=== PATIENT | male | born 1960 | race Caucasian/White ===

== ENCOUNTER 2016-10-08 10:09 | Observation (INO) | payer MEDICARE ==
[2016-10-08] MEDS ORDERED: ACETAMINOPHEN TAB 325 MG TAB PO PRN (12:33)
[2016-10-08] MEDS ORDERED: NALOXONE 0.4 MG/ML 1 ML VIAL IV PRN (12:33)
[2016-10-08 12:35] LABS: Glucose,Whole Blood 364 mg/dL (75-99)
--- NOTE | 2016-10-08 12:54 | XR ---
EXAMINATION TYPE: XR chest 2V DATE OF EXAM: 10/08/2016 12:46 PM COMPARISON: NONE INDICATION: TECHNIQUE: Single frontal view of the chest is obtained. FINDINGS: The heart size is normal. The pulmonary vasculature is normal. There is a linear opacity at the left base. Some minimal plate atelectasis is present. Lungs are othe rwise clear. IMPRESSION: 1. Minimal plate atelectasis left base in otherwise normal 2 view chest
[2016-10-08] MEDS ORDERED: INSULIN LISPRO (humaLOG) 300 UNIT/3 ML VIAL SQ ONE (12:57)
[2016-10-08] MEDS: SODIUM CHLORIDE 0.9% 1,000 ML IV SCH (13:18)
[2016-10-08 13:27] LABS: Basophils % (A) 0 %; CH 29.7; CHCM 34.6; Eosinophils # (A) 0.1 k/uL (0-0.7); Eosinophils % (A) 1 %; HCT 39.9 % (39.0-53.0); HDW 2.78; HGB 13.9 gm/dL (13.0-17.5); Luc # (Auto) 0.14; Luc % (Auto) 1; Lymphocytes # (A) 2.8 k/uL (1.0-4.8); Lymphocytes % (A) 25 %; MCH 29.9 pg (25.0-35.0); MCHC 34.8 g/dL (31.0-37.0); MCV 86.1 fL (80.0-100.0); Mean Platelet Volume 10.2; Monocytes # (A) 0.5 k/uL (0-1.0); Monocytes % (A) 4 %; Neutrophils # (A) 7.7 k/uL (1.3-7.7); Neutrophils % (A) 69 %; RBC 4.63 m/uL (4.30-5.90); RDW 13.1 % (11.5-15.5); WBC 11.2 k/uL (3.8-10.6); WBC (Perox) 11.07
[2016-10-08] MEDS ORDERED: ALPRAZolam 0.25 MG TAB PO PRN (13:40)
[2016-10-08 13:46] LABS: ALT 30 U/L (21-72); AST 20 U/L (17-59); Alkaline Phosphatase 80 U/L (38-126); Anion Gap 14 mmol/L; Blood Urea Nitrogen 20 mg/dL (9-20); Calcium 9.6 mg/dL (8.4-10.2); Carbon Dioxide 26 mmol/L (22-30); Chloride 99 mmol/L (98-107); Glucose 365 mg/dL (74-99); Non-African American GFR(MDRD) >60 (>60 ml/min/1.73 sqM); Potassium 4.6 mmol/L (3.5-5.1); Sodium 139 mmol/L (137-145); Total Bilirubin 0.7 mg/dL (0.2-1.3); Total Protein 7.8 g/dL (6.3-8.2)
--- NOTE | 2016-10-08 15:18 | P.HPIM ---
History of Present Illness H&P Date: 10/08/16 Chief Complaint: Uncontrolled hypertension Patient is a 56-year-old male, patient of Dr. Saldana in the outpatient setting, with medical history significant for hypertension, diabetes mellitus type 2, hypertension, rheumatoid arthritis, and osteoarthritis. Patient reports that many years ago he was told that he has fluid behind his right eye and reports occasional cloudy vision especially with when reading things up close. Patient states that he had a regular scheduled visit with Dr. Saldana today with reported elevated blood pressure in the 200s despite being on four blood pressure medications. Patient denies headache, new visual changes, nausea, vomiting, shortness of breath, chest pain, abdominal pain, numbness or tingling, diarrhea or constipation, urinary hesitancy, dysuria, or hematuria. Patient does complain of joint pain for which he takes prescribed opiates and occasional marijuana. Patient reports that he occasionally uses a cane. Patient reports that he does have a glucose monitor but doesn't check his blood sugar at home. Patient has been admitted to the observation unit with cardiology consult. Past Medical History Past Medical History: Diabetes Mellitus, Eye Disorder, Hypertension, Osteoarthritis (OA), Pneumonia, Rheumatoid Arthritis (RA) Additional Past Medical History / Comment(s): NIDDM type II, R eye cloudy vision and pt states eye has fluid behind it, bilateral hand/feet and knee pain. History of Any Multi-Drug Resistant Organisms: None Reported Past Surgical History: Appendectomy, Cholecystectomy, Orthopedic Surgery Additional Past Surgical History / Comment(s): L knee ACL/reconstruction. Past Anesthesia/Blood Transfusion Reactions: Postoperative Nausea & Vomiting ( PONV) Past Psychological History: Anxiety Additional Psychological History / Comment(s): Pt resides with his son. He has a cane which he uses infrequently. He drives. He has a glucose monitor. Smoking Status: Former smoker Past Alcohol Use History: None Reported Additional Past Alcohol Use History / Comment(s): Pt states he started smoking in 1981 and quit in 2005. Past Drug Use History: Marijuana Additional Drug Use History / Comment(s): Pt states he smokes a joint a day for pain. - Past Family History Father Family Medical History: Diabetes Mellitus Mother Family Medical History: Renal Disease Additional Family Medical History / Comment(s): Mother is 80yrs old and gets hemodialysis. Medications and Allergies Home Medications Medication Instructions Recorded Confirmed Type ALPRAZolam [Xanax] 0.25 mg PO BID PRN 10/08/16 10/08/16 History Enalapril [Vasotec] 10 mg PO BID 10/08/16 10/08/16 History HYDROcodone/APAP 10-325MG [[place] 1 tab PO Q6H PRN 10/08/16 10/08/16 History 10-325] Hydrochlorothiazide [Hydrodiuril] 50 mg PO DAILY 10/08/16 10/08/16 History Indomethacin [Indocin] 50 mg PO BID 10/08/16 10/08/16 History amLODIPine BESYLATE [Norvasc] 10 mg PO DAILY 10/08/16 10/08/16 History cloNIDine HCL [Catapres] 0.1 mg PO BID 10/08/16 10/08/16 History glyBURIDE,MICRONIZED 6 mg PO BID 10/08/16 10/08/16 History metFORMIN HCL [Glucophage] 500 mg PO BID 10/08/16 10/08/16 History Allergies Allergy/AdvReac Type Severity Reaction Status Date / Time No Known Allergies Allergy Verified 10/08/16 12:38 Physical Exam Vitals: Vital Signs Temp Pulse Resp BP Pulse Ox 10/08/16 12:00 98.4 F 91 16 153/93 93 L Intake and Output 10/08/16 10/08/16 10/08/16 06:59 14:59 22:59 Intake Total 340 Balance 340 Intake: Oral 340 Other: # Voids 1 Weight 99.79 kg Patient Weight 10/09/16 06:59 Weight 99.79 kg GENERAL: Pt awake and alert, well-appearing, well-nourished, and in no acute distress. HEAD: Atraumatic, normocephalic. EYES: Pupils equal, round, and reactive to light, extraocular movements intact, sclera anicteric, conjunctiva are normal. ENT: Oropharynx clear without exudates. Moist mucous membranes. NECK:Normal range of motion, supple without lymphadenopathy or JVD. Thyroid midline, small and firm without palpable masses. LUNGS: Breath sounds clear to auscultation bilaterally. No wheezes, rales, or rhonchi. HEART: Heart S1, S2, no S3 or S4. Regular rate and rhythm. No murmurs, rubs or gallops. ABDOMEN: Soft, obese, nontender, nondistended, normoactive bowel sounds. No guarding, no rebound. EXTREMITIES: Palpable peripheral pulses. No edema. No calf tenderness. NEUROLOGICAL: Pt oriented x 3. No focal deficits. Strength and sensation grossly intact. PSYCH: Normal mood, normal affect. SKIN: Warm, dry, intact. Normal turgor. No rashes or lesions. Results CBC & Chem 7: 10/08/16 12:54 10/08/16 12:54 Labs: Abnormal Lab Results - Last 24 Hours (Table) 10/08/16 10/08/16 10/08/16 Range/Units 12:32 12:54 12:54 WBC 11.2 H (3.8-10.6) k/uL Glucose 365 H (74-99) mg/dL POC Glucose (mg/dL) 364 H (75-99) mg/dL Chest x-ray: report reviewed (Minimal plate atelectasis left base, lungs are otherwise clear. Heart size is normal.) Thrombosis Risk Factor Assmnt - DVT/VTE Prophylaxis DVT/VTE Prophylaxis: Low risk, early ambulation encouraged - Choose All That Apply Any of the Below Risk Factors Present?: Yes Each Factor Represents 1 point: Age 41-60 years, Obesity (BMI >25) Other Risk Factors: No Other congenital or acquired thrombophilia - If yes, enter type in comment: No Thrombosis Risk Factor Assessment Total Risk Factor Score: 2 Thrombosis Risk Factor Assessment Level: Low Risk Assessment and Plan Plan: Impression: 1. Uncontrolled blood pressure in the outpatient setting. 2. Diabetes mellitus type 2. 3. History of hypertension. 4. Osteoarthritis to multiple joints. 5. Rheumatoid arthritis. 6. History of anxiety. 7. History of nicotine dependence. 8. Marijuana use. Plan: Consult to cardiology. Will obtain EKG and echocardiogram with Doppler. Obtain CBC and CMP. Resume home medications. Add Accu-Cheks before meals at bedtime with humalog sliding scale. Consult dietitian and paraeducator. Continue supportive treatment and pain management. Encourage ambulation. The above impression and plan have been discussed and directed by Dr. Saldana. Cristi MARTIN acting as scribe for Dr. Saldana.
[2016-10-08 17:00] LABS: Glucose,Whole Blood 148 mg/dL (75-99)
[2016-10-08] MEDS: glipiZIDE 10 MG TAB PO SCH (17:07)
[2016-10-08] MEDS: HYDROcodone/APAP 10-325MG 1 EACH TAB PO PRN ×2 (17:10→22:44)
[2016-10-08] MEDS: INSULIN LISPRO (humaLOG) 300 UNIT/3 ML VIAL SQ SCH ×2 (17:22→20:14)
[2016-10-08 17:40] LABS: Creatine Kinase 121 U/L (55-170)
[2016-10-08 17:53] LABS: Creatine Kinase MB 0.8 ng/mL (0.0-2.4); Troponin I <0.012 ng/mL (0.000-0.034)
[2016-10-08] MEDS: FAMOTIDINE 20 MG TAB PO SCH (20:13)
[2016-10-08] MEDS: metFORMIN 500 MG TAB PO SCH (20:13)
[2016-10-08] MEDS: INDOMETHACIN 25 MG CAP PO SCH (20:13)
[2016-10-08] MEDS: LISINOPRIL 20 MG TAB PO SCH (20:13)
[2016-10-08] MEDS: cloNIDine HCL 0.1 MG TAB PO SCH (20:13)
[2016-10-08 20:34] LABS: Glucose,Whole Blood 199 mg/dL (75-99)
[2016-10-08 22:56] LABS: Hemoglobin A1C 9.1 % (4.2-6.1)
[2016-10-08 23:14] LABS: Creatine Kinase 117 U/L (55-170)
[2016-10-08 23:27] LABS: Creatine Kinase MB 0.8 ng/mL (0.0-2.4); Troponin I <0.012 ng/mL (0.000-0.034)
[2016-10-09 06:20] LABS: Creatine Kinase 122 U/L (55-170)
[2016-10-09 06:34] LABS: Creatine Kinase MB 0.8 ng/mL (0.0-2.4); Troponin I <0.012 ng/mL (0.000-0.034)
[2016-10-09] MEDS: HYDROcodone/APAP 10-325MG 1 EACH TAB PO PRN ×3 (06:55→19:41)
[2016-10-09 06:58] LABS: Glucose,Whole Blood 178 mg/dL (75-99)
--- NOTE | 2016-10-09 07:47 | ECHOF ---
Referral Reason:evaluate heart function MEASUREMENTS -------- HEIGHT: 167.6 cm WEIGHT: 99.8 kg BP: 153/93 RVIDd: 3.1 cm (< 3.3) IVSd: 1.1 cm (0.6 - 1.1) LVIDd: 5.6 cm (3.9 - 5.3) LVPWd: 1.0 cm (0.6 - 1.1) IVSs: 1.9 cm LVIDs: 3.4 cm LVPWs: 1.9 cm LA Diam: 3.5 cm (2.7 - 3.8) LAESV Index (A-L): 27.35 ml/m Ao Diam: 3.7 cm (2.0 - 3.7) AV Cusp: 1.5 cm (1.5 - 2.6) LA Diam: 3.1 cm (2.7 - 3.8) MV EXCURSION: 13.536 mm (> 18.000) MV EF SLOPE: 97 mm/s (70 - 150) EPSS: 0.4 cm MV E Russ: 0.88 m/s MV DecT: 270 ms MV A Russ: 0.59 m/s MV E/A Ratio: 1.50 AV maxP.10 mmHg AV meanP.42 mmHg RAP: 5.00 mmHg RVSP: 22.20 mmHg FINDINGS -------- Sinus rhythm. This was a technically good study. The left ventricular size is normal. There is borderline concentric left ventricular hypertrophy. Overall left ventricular systolic function is normal with, an EF between 60 - 65 %. The right ventricle is normal in size and function. Normal LA size by volume 22+/-6 ml/m2. The right atrium is normal in size. There is mild to moderate aortic valve sclerosis. There is mild aortic stenosis present. Peak/mean gradient across the Aortic Valve is 14.10mmHg / 7.42mmHg. Mild mitral annular calcification present. There is trace mitral regurgitation. Mild tricuspid regurgitation present. Right ventricular systolic pressure is normal at < 35 mmHg. The pulmonic valve is normal. There is no pulmonic regurgitation present. The aortic root is dilated measuring 3.7cm. The inferior vena cava is mildly dilated. There is no pericardial effusion. CONCLUSIONS -------- 1. Sinus rhythm. 2. There is mild aortic stenosis present. 3. Peak/mean gradient across the Aortic Valve is 14.10mmHg / 7.42mmHg. 4. Mild mitral annular calcification present. 5. There is trace mitral regurgitation. 6. Mild tricuspid regurgitation present. 7. Right ventricular systolic pressure is normal at < 35 mmHg. 8. The pulmonic valve is normal. 9. The aortic root is dilated measuring 3.7cm. 10. The inferior vena cava is mildly dilated. 11. There is no pericardial effusion. 12. This was a technically good study. 13. The left ventricular size is normal. 14. There is borderline concentric left ventricular hypertrophy. 15. Overall left ventricular systolic function is normal with, an EF between 60 - 65 %. 16. The right ventricle is normal in size and function. 17. Normal LA size by volume 22+/-6 ml/m2. 18. The right atrium is normal in size. 19. There is mild to moderate aortic valve sclerosis. RN CARDIOVASCULAR ICU: Byron Miller RDCS
[2016-10-09] MEDS: INSULIN LISPRO (humaLOG) 300 UNIT/3 ML VIAL SQ SCH ×4 (09:02→22:59)
[2016-10-09] MEDS: FAMOTIDINE 20 MG TAB PO SCH ×2 (09:15→19:39)
[2016-10-09] MEDS: cloNIDine HCL 0.1 MG TAB PO SCH ×2 (09:15→19:39)
[2016-10-09] MEDS: LISINOPRIL 20 MG TAB PO SCH ×2 (09:15→19:39)
[2016-10-09] MEDS: HYDROCHLOROTHIAZIDE 50 MG TAB PO SCH (09:15)
[2016-10-09] MEDS: amLODIPine 10 MG TAB PO SCH (10:22)
[2016-10-09] MEDS: metFORMIN 500 MG TAB PO SCH ×2 (10:22→19:40)
[2016-10-09] MEDS: glipiZIDE 10 MG TAB PO SCH ×2 (10:22→17:25)
[2016-10-09] MEDS: INDOMETHACIN 25 MG CAP PO SCH ×2 (10:22→19:39)
--- NOTE | 2016-10-09 10:42 | CONS ---
DATE OF CONSULTATION: Mr. Max is a 56-year-old, obesely-built gentleman who is seen for uncontrolled hypertension. This patient has a history of hypertension, diabetes, rheumatoid arthritis and osteoarthritis. Patient has been on multiple medications and still blood pressure is not very well controlled. Patient was seen in Dr. Saldana's office yesterday. His systolic blood pressure was significantly elevated and so the patient was advised to come over here. Patient has rheumatoid arthritis. He is on anti-inflammatory medications. Patient is otherwise physically active, denies any history of exertional chest discomfort. There is no prior history of myocardial infarction. Patient does have a history of diabetes. Past medical history includes appendectomy, cholecystectomy, orthopedic surgery. SMOKING HISTORY: Patient is a former smoker. Patient's home medications included amlodipine, clonidine, metformin, glyburide, hydrochlorothiazide, enalapril and Xanax. Physical examination at present reveals a 56-year-old, obesely-built gentleman who does not appear to be in any acute distress at present. Patient's blood pressure is 168/85 mmHg, heart rate is 98 per minute. HEENT examination is negative. Neck is supple. There is no increase in jugular venous pressure. Both the carotid pulses are felt. There is no bruit. Chest is symmetrical. HEART: The PMI is not felt. First and second heart sounds are normal. There is a mid-systolic murmur noted at the left sternal border. Lungs are clinically clear to auscultation and percussion. Abdomen is soft. Liver and spleen are not enlarged. Bowel sounds are heard. Extremities, peripheral pulsations are 2+. Patient's EKG shows normal sinus rhythm without any acute ischemic changes. Patient's blood sugars are elevated but patient's hemoglobin has been remaining fairly well-controlled as an outpatient. Patient's 2 sets of troponins are normal. FINAL IMPRESSION: This patient is admitted with uncontrolled hypertension. Patient has multiple risk factors including diabetes and rheumatoid arthritis. RECOMMENDATION: Discussed the condition with Dr. Saldana. We will add Coreg 12.5 mg b.i.d., continue amlodipine and in view of his history of diabetes as well as smoking, I will add Lipitor 40 mg daily. Echo and Doppler study will be done. Patient has a mid-systolic murmur, rule out any underlying hypertrophic cardiomyopathy.
[2016-10-09] MEDS: CARVEDILOL 12.5 MG TAB PO SCH ×2 (11:24→17:25)
[2016-10-09 11:47] LABS: Glucose,Whole Blood 283 mg/dL (75-99)
[2016-10-09 14:06] VITALS: BMI 35.5
--- NOTE | 2016-10-09 15:13 | P.PN ---
Subjective Principal diagnosis: Uncontrolled hypertension Patient is a 56-year-old male, patient of Dr. Saldana in the outpatient setting, with medical history significant for hypertension, diabetes mellitus type 2, hypertension, rheumatoid arthritis, and osteoarthritis. Patient reports that many years ago he was told that he has fluid behind his right eye and reports occasional cloudy vision especially when reading things up close. Patient states that he had a regular scheduled visit with Dr. Saldana today with reported elevated blood pressure in the 200s despite being on four blood pressure medications. Patient denies headache, new visual changes, nausea , vomiting, shortness of breath, chest pain, abdominal pain, numbness or tingling, diarrhea or constipation, urinary hesitancy, dysuria, or hematuria. Patient does complain of joint pain for which he takes prescribed opiates and occasional marijuana. Patient reports that he occasionally uses a cane. Patient reports that he does have a glucose monitor but doesn't check his blood sugar at home. Patient has been admitted to the observation unit with cardiology consult. 10/09/2016: Patient is evaluated on the observation unit. No new complaints overnight. Patient did have a blood pressure reading of 190/108 this morning. Patient did have an EKG yesterday that showed normal sinus rhythm without any acute ischemic changes. Troponins negative 2. Echocardiogram with Doppler with evidence of mild to moderate aortic valve sclerosis; mild aortic stenosis; preserved left ventricular systolic function with an EF between 60-65%. Chest x -ray with evidence of minimal plate atelectasis to left base. Cardiology has evaluated patient and has started him on Coreg 12.5 mg twice a day. Objective - Vital Signs Vital signs: Vital Signs Temp 98.3 F 10/09/16 12:00 Pulse 76 10/09/16 12:00 Resp 18 10/09/16 12:00 BP 145/88 10/09/16 12:00 Pulse Ox 96 10/09/16 12:00 Intake & Output 10/08/16 10/09/16 10/09/16 18:59 06:59 18:59 Intake Total 340 360 Balance 340 360 Weight 99.79 kg 99.79 kg Intake: Oral 340 360 Other: Voiding Method Toilet # Voids 1 1 - Exam GENERAL: Pt awake and alert, well-appearing, well-nourished, and in no acute distress. HEAD: Atraumatic, normocephalic. EYES: Pupils equal, round, and reactive to light, extraocular movements intact, sclera anicteric, conjunctiva are normal. ENT: Oropharynx clear without exudates. Moist mucous membranes. NECK:Normal range of motion, supple without lymphadenopathy or JVD. Thyroid midline, small and firm without palpable masses. LUNGS: Breath sounds clear to auscultation bilaterally. No wheezes, rales, or rhonchi. HEART: Heart S1, S2, no S3 or S4. Regular rate and rhythm. No murmurs, rubs or gallops. ABDOMEN: Soft, obese, nontender, nondistended, normoactive bowel sounds. No guarding, no rebound. EXTREMITIES: Palpable peripheral pulses. No edema. No calf tenderness. NEUROLOGICAL: Pt oriented x 3. No focal deficits. Strength and sensation grossly intact. PSYCH: Normal mood, normal affect. SKIN: Warm, dry, intact. Normal turgor. No rashes or lesions. - Labs CBC & Chem 7: 10/08/16 12:54 10/08/16 12:54 Labs: Abnormal Lab Results - Last 24 Hours (Table) 10/08/16 10/08/16 10/08/16 Range/Units 12:54 16:58 20:12 POC Glucose (mg/dL) 148 H 199 H (75-99) mg/dL Hemoglobin A1c 9.1 H (4.2-6.1) % 10/09/16 10/09/16 Range/Units 06:56 11:44 POC Glucose (mg/dL) 178 H 283 H (75-99) mg/dL Hemoglobin A1c (4.2-6.1) % Assessment and Plan Plan: Impression: 1. Uncontrolled hypertension, present on admission. 2. Diabetes mellitus type 2, uncontrolled. Hemoglobin A1c 9.1. 3. History of hypertension. 4. Osteoarthritis to multiple joints. 5. Rheumatoid arthritis. 6. History of anxiety. 7. History of nicotine dependence. 8. Marijuana use. Plan: Continue to monitor patient. Continue current medications. Coreg 12.5 mg by mouth twice a day has been added. Continue to follow with cardiology. Continue supportive treatment and pain management. Encourage ambulation. The above impression and plan have been discussed and directed by Dr. Saldana. Cristi MARTIN acting as scribe for Dr. Saldana.
[2016-10-09 17:11] LABS: Glucose,Whole Blood 174 mg/dL (75-99)
[2016-10-09] MEDS: SODIUM CHLORIDE 0.9% 1,000 ML IV SCH (17:29)
[2016-10-09] MEDS ORDERED: ATORVASTATIN 40 MG TAB PO SCH (21:00)
[2016-10-09 21:48] LABS: Glucose,Whole Blood 268 mg/dL (75-99)
[2016-10-10] MEDS: HYDROcodone/APAP 10-325MG 1 EACH TAB PO PRN ×2 (01:34→08:29)
[2016-10-10 06:57] LABS: Glucose,Whole Blood 178 mg/dL (75-99)
[2016-10-10] MEDS: INSULIN LISPRO (humaLOG) 300 UNIT/3 ML VIAL SQ SCH (07:29)
[2016-10-10] MEDS: glipiZIDE 10 MG TAB PO SCH (07:30)
[2016-10-10] MEDS: CARVEDILOL 12.5 MG TAB PO SCH (07:30)
[2016-10-10] MEDS: amLODIPine 10 MG TAB PO SCH (07:31)
[2016-10-10] MEDS: cloNIDine HCL 0.1 MG TAB PO SCH (07:31)
[2016-10-10] MEDS: INDOMETHACIN 25 MG CAP PO SCH (07:32)
[2016-10-10] MEDS: HYDROCHLOROTHIAZIDE 50 MG TAB PO SCH (07:32)
[2016-10-10] MEDS: FAMOTIDINE 20 MG TAB PO SCH (07:32)
[2016-10-10] MEDS: metFORMIN 500 MG TAB PO SCH (07:33)
[2016-10-10] MEDS: LISINOPRIL 20 MG TAB PO SCH (07:34)
[2016-10-10 07:49] VITALS: RESP 18; TEMP 98.2
[2016-10-10 08:52] VITALS: BP 163/91; PULSE 80
--- NOTE | 2016-10-10 13:03 | P.DS ---
Providers Date of admission: 10/08/16 11:38 Expected date of discharge: 10/10/16 Attending physician: Yao Saldana Consults: 10/08/16 12:25 Consult Physician Urgent Consulting Provider: Kam Eubanks Consult Reason/Comments: uncontrolled hypertension Do you want consulting provider notified?: Yes Primary care physician: Yao Saldana Hospital Course: Patient is a 56-year-old male, patient of Dr. Saldana in the outpatient setting, with medical history significant for hypertension, diabetes mellitus type 2, hypertension, rheumatoid arthritis, and osteoarthritis. Patient reports that many years ago he was told that he has fluid behind his right eye and reports occasional cloudy vision especially when reading things up close. Patient was admitted directly from Dr. Saldana office with uncontrolled hypertension with systolic blood pressure in the 200s. Patient did have an EKG that showed normal sinus rhythm without acute ischemic changes. Troponins negative 3. Echocardiogram with Doppler with evidence of mild to moderate aortic valve sclerosis; mild aortic stenosis; preserved left ventricular systolic function with an EF between 60-65%. Chest x-ray with evidence of minimal plate atelectasis to the left base. Patient was evaluated by cardiology during his admission and blood pressure medications were adjusted. Patient was also noted to have a hemoglobin A1c of 9.1. Dietitian and diabetic consults were initiated. Patient was given a new glucometer upon discharge. Blood pressure improved during hospital stay and patient was deemed stable for discharge to home with follow-up with cardiology and Dr. Saldana the outpatient setting. Discharge diagnoses: 1. Uncontrolled hypertension, present on admission. 2. Diabetes mellitus type 2, uncontrolled. Hemoglobin A1c 9.1. 3. History of hypertension. 4. Osteoarthritis to multiple joints. 5. Rheumatoid arthritis. 6. History of anxiety. 7. History of nicotine dependence. 8. Marijuana use. The above impression and plan have been discussed and directed by Dr. Saldana. Cristi MARTIN acting as scribe for Dr. Saldana. Pertinent Studies: Echocardiogram with Doppler; chest x-ray Patient Condition at Discharge: Good Plan - Discharge Summary New Discharge Prescriptions: Carvedilol [Coreg*] 12.5 mg PO BID-W/MEALS #60 tab Lisinopril [Zestril] 20 mg PO BID #60 tab amLODIPine BESYLATE [Norvasc] 10 mg PO DAILY #30 tablet Discharge Medication List ALPRAZolam [Xanax] 0.25 mg PO BID PRN 10/08/16 [History] HYDROcodone/APAP 10-325MG [[place] 10-325] 1 tab PO Q6H PRN 10/08/16 [History] Hydrochlorothiazide [Hydrodiuril] 50 mg PO DAILY 10/08/16 [History] Indomethacin [Indocin] 50 mg PO BID 10/08/16 [History] cloNIDine HCL [Catapres] 0.1 mg PO BID 10/08/16 [History] glyBURIDE,MICRONIZED 6 mg PO BID 10/08/16 [History] metFORMIN HCL [Glucophage] 500 mg PO BID 10/08/16 [History] Carvedilol [Coreg*] 12.5 mg PO BID-W/MEALS #60 tab 10/10/16 [Rx] Lisinopril [Zestril] 20 mg PO BID #60 tab 10/10/16 [Rx] amLODIPine BESYLATE [Norvasc] 10 mg PO DAILY #30 tablet 10/10/16 [Rx] Follow up Appointment(s)/Referral(s): Yao Saldana MD [Primary Care Provider] - 10/15/16 2:00 pm (Pt can call office to see if anyone has canceled appt to get in earlier. ) Patient Instructions/Handouts: Type 2 Diabetes in Adults (DC), Hypertension (DC ) Activity/Diet/Wound Care/Special Instructions: Please fruit picker glucometer Discharge Disposition: HOME SELF-CARE
== END 2016-10-10 09:53 | disposition home or self-care (01) ==
LOC: 3OBS 11:38
PROVIDERS: ADMIT Family Medicine; ATTEND Family Medicine
DX: I10 Essential (primary) hypertension (principal); E11.65 Type 2 diabetes mellitus with hyperglycemia; M06.9 Rheumatoid arthritis, unspecified; F41.9 Anxiety disorder, unspecified; M19.90 Unspecified osteoarthritis, unspecified site; F12.90 Cannabis use, unspecified, uncomplicated; E66.09 Other obesity due to excess calories; H57.9 Unspecified disorder of eye and adnexa; Z68.35 Body mass index [BMI] 35.0-35.9, adult; Z79.899 Other long term (current) drug therapy; Z87.891 Personal history of nicotine dependence; Z79.84 Long term (current) use of oral hypoglycemic drugs; Z83.3 Family history of diabetes mellitus
CPT/HCPCS: 93306; 80053; 83036; 82550 ×2; 82553 ×2; 84484 ×2; 85025; 71020; G0378 ×3; G0379; 93005

== ENCOUNTER → 2017-05-14 | Outpatient (CLI) | payer MEDICARE ==
--- NOTE | 2017-05-14 08:26 | MR ---
EXAMINATION TYPE: MR lumbar spine wo con DATE OF EXAM: 05/14/2017 COMPARISON: NONE HISTORY: Low back pain TECHNIQUE: T1 and T2 axial and sagittal images of the lumbar spine are submitted. FINDINGS: There is no abnormal signal seen within the visualized spinal cord or paraspinal soft tissu es. There is degenerative disc disease at T12-L1 no foraminal encroachment or canal stenosis. At L1-2 there is facet arthropathy. No focal herniation or canal stenosis. Neural foramina patent. At L2-3 there is no disc herniation or canal stenosis. Facet arthropathy noted. No foraminal encroach ment. At L3-4 there is disc desiccation. There is facet arthropathy. Severe motion artifact. No canal steno sis or foraminal encroachment. At L4-5 there is degenerative disc disease. Broad-based central disc protrusion with mild effacement of thecal sac. Uncovertebral joint hypertrophy and severe facet arthropathy contribute to borderline to mild canal stenosis and bilateral foraminal encroachment. At L5-S1 there is degenerative disc disease with marked facet arthropathy. No Canal stenosis. There d oes appear to be bilateral moderate foraminal encroachment secondary to severe facet arthropathy. IMPRESSION: 1. Broad-based disc central protrusion L4-L5 with hypertrophic changes contributing to borderline to mild canal stenosis and bilateral foraminal encroachment. 2. Multilevel facet arthropathy with the most marked findings at L5-S1 resulting in bilateral foramin al encroachment.
== END | disposition home or self-care (01) ==
LOC: RADMRIMAIN 07:14
PROVIDERS: ATTEND Family Medicine
DX: M48.061 Spinal stenosis, lumbar region without neurogenic claudication (principal); M51.26 Other intervertebral disc displacement, lumbar region; M46.86 Other specified inflammatory spondylopathies, lumbar region
CPT/HCPCS: 72148

== ENCOUNTER 2017-12-03 20:19 | Emergency (ER) | payer MEDICARE ==
[2017-12-03 21:09] LABS: Glucose,Whole Blood 246 mg/dL (75-99)
[2017-12-03] MEDS ORDERED: ONDANSETRON 4 MG/2 ML VIAL IVP STA (21:21)
[2017-12-03] MEDS ORDERED: SODIUM CHLORIDE 0.9% 1,000 ML IV STA ×2 (21:21)
[2017-12-03] MEDS ORDERED: FAMOTIDINE 20 MG/2 ML VIAL IV STA (21:22)
--- NOTE | 2017-12-03 21:29 | ED ---
General Adult HPI - General Chief complaint: Nausea/Vomiting/Diarrhea Stated complaint: Nausea and vomiting Time Seen by Provider: 12/03/17 21:00 Source: patient, RN notes reviewed Mode of arrival: ambulatory Limitations: no limitations - History of Present Illness Initial comments: Patient is a pleasant 57-year-old male presenting to the emergency Department with complaints of nausea and vomiting. Symptoms been going on for 2-3 days. Patient has been somewhat sweaty. Patient has had some loose stools. No abdominal pain. No chest pain or dyspnea. No history of similar symptoms previously. Blood sugar has been running somewhat high, up to 260. Blood pressure has been a little bit high as well. - Related Data Home Medications Medication Instructions Recorded Confirmed ALPRAZolam [Xanax] 0.25 mg PO BID PRN 10/08/16 10/08/16 HYDROcodone/APAP 10-325MG [[place] 1 tab PO Q6H PRN 10/08/16 10/08/16 10-325] Hydrochlorothiazide [Hydrodiuril] 50 mg PO DAILY 10/08/16 10/08/16 Indomethacin [Indocin] 50 mg PO BID 10/08/16 10/08/16 cloNIDine HCL [Catapres] 0.1 mg PO BID 10/08/16 10/08/16 glyBURIDE,MICRONIZED 6 mg PO BID 10/08/16 10/08/16 metFORMIN HCL 1,000 mg PO BID 12/03/17 12/03/17 Previous Rx's Medication Instructions Recorded Carvedilol [Coreg*] 12.5 mg PO BID-W/MEALS #60 tab 10/10/16 Lisinopril [Zestril] 20 mg PO BID #60 tab 10/10/16 amLODIPine BESYLATE [Norvasc] 10 mg PO DAILY #30 tablet 10/10/16 Metoclopramide HCl [Reglan] 10 mg PO Q6HR PRN #15 tablet 12/03/17 Allergies Allergy/AdvReac Type Severity Reaction Status Date / Time No Known Allergies Allergy Verified 12/03/17 22:45 Review of Systems ROS Statement: Those systems with pertinent positive or pertinent negative responses have been documented in the HPI. ROS Other: All systems not noted in ROS Statement are negative. Constitutional: Denies: fever Eyes: Denies: eye pain ENT: Denies: ear pain Respiratory: Denies: cough, dyspnea Cardiovascular: Denies: chest pain Endocrine: Denies: fatigue Gastrointestinal: Reports: nausea, vomiting. Denies: abdominal pain Genitourinary: Denies: dysuria Musculoskeletal: Denies: back pain Skin: Denies: rash Neurological: Denies: headache Past Medical History Past Medical History: Diabetes Mellitus, Eye Disorder, Hypertension, Osteoarthritis (OA), Pneumonia, Rheumatoid Arthritis (RA) Additional Past Medical History / Comment(s): NIDDM type II, R eye cloudy vision and pt states eye has fluid behind it, bilateral hand/feet and knee pain. History of Any Multi-Drug Resistant Organisms: None Reported Past Surgical History: Appendectomy, Cholecystectomy, Orthopedic Surgery Additional Past Surgical History / Comment(s): L knee ACL/reconstruction. Past Anesthesia/Blood Transfusion Reactions: Postoperative Nausea & Vomiting ( PONV) Past Psychological History: Anxiety Smoking Status: Former smoker Past Alcohol Use History: Rare Past Drug Use History: Marijuana - Past Family History Father Family Medical History: Diabetes Mellitus Mother Family Medical History: Renal Disease Additional Family Medical History / Comment(s): Mother is 80yrs old and gets hemodialysis. General Exam Limitations: no limitations General appearance: alert, in no apparent distress Head exam: Present: atraumatic Eye exam: Present: normal appearance, PERRL ENT exam: Present: normal oropharynx Neck exam: Present: normal inspection Respiratory exam: Present: normal lung sounds bilaterally Cardiovascular Exam: Present: regular rate, normal rhythm GI/Abdominal exam: Present: soft, normal bowel sounds. Absent: distended, tenderness, guarding, rebound, rigid, pulsatile mass Extremities exam: Present: normal inspection. Absent: pedal edema, calf tenderness Neurological exam: Present: alert. Absent: motor sensory deficit Psychiatric exam: Present: normal affect, normal mood Skin exam: Present: normal color Course Vital Signs 12/03/17 20:27 Temperature 97.8 F Pulse Rate 91 Respiratory 19 Rate Blood Pressure 115/84 O2 Sat by Pulse 99 Oximetry EKG Findings - EKG Comments: EKG Findings:: Normal sinus rhythm 79. WI 154. QRS 88. QT 342. QTC 392. Normal axis. Normal QRS. No acute ST change. Medical Decision Making - Medical Decision Making Patient reevaluated and resting comfortably in bed. Patient symptom-free and requesting discharge. Patient updated on results and need for follow-up. Patient also advised to return if symptoms worsen. - Lab Data Result diagrams: 12/03/17 21:13 12/03/17 21:13 Lab Results 12/03/17 12/03/17 12/03/17 Range/Units 20:35 21:13 21:13 WBC 11.6 H (3.8-10.6) k/uL RBC 4.57 (4.30-5.90) m/uL Hgb 13.4 (13.0-17.5) gm/dL Hct 38.0 L (39.0-53.0) % MCV 83.2 (80.0-100.0) fL MCH 29.2 (25.0-35.0) pg MCHC 35.1 (31.0-37.0) g/dL RDW 12.9 (11.5-15.5) % Plt Count 244 (150-450) k/uL Neutrophils % 73 % Lymphocytes % 20 % Monocytes % 5 % Eosinophils % 1 % Basophils % 0 % Neutrophils # 8.5 H (1.3-7.7) k/uL Lymphocytes # 2.3 (1.0-4.8) k/uL Monocytes # 0.5 (0-1.0) k/uL Eosinophils # 0.1 (0-0.7) k/uL Basophils # 0.0 (0-0.2) k/uL Sodium 142 (137-145) mmol/L Potassium 5.3 H (3.5-5.1) mmol/L Chloride 104 (98-107) mmol/L Carbon Dioxide 20 L (22-30) mmol/L Anion Gap 18 mmol/L BUN 36 H (9-20) mg/dL Creatinine 1.10 (0.66-1.25) mg/dL Est GFR (CKD-EPI)AfAm 85 (>60 ml/min/1.73 sqM) Est GFR (CKD-EPI)NonAf 74 (>60 ml/min/1.73 sqM) Glucose 215 H (74-99) mg/dL POC Glucose (mg/dL) 246 H (75-99) mg/dL POC Glu Splunk Developer ID Wu Inocente Calcium 10.2 (8.4-10.2) mg/dL Total Bilirubin 0.7 (0.2-1.3) mg/dL AST 19 (17-59) U/L ALT 28 (21-72) U/L Alkaline Phosphatase 82 (38-126) U/L Total Creatine Kinase (55-170) U/L CK-MB (CK-2) (0.0-2.4) ng/mL CK-MB (CK-2) Rel Index Troponin I (0.000-0.034) ng/mL Total Protein 7.7 (6.3-8.2) g/dL Albumin 4.9 (3.5-5.0) g/dL Amylase 89 (30-110) U/L Lipase 163 (23-300) U/L 12/03/17 Range/Units 21:13 WBC (3.8-10.6) k/uL RBC (4.30-5.90) m/uL Hgb (13.0-17.5) gm/dL Hct (39.0-53.0) % MCV (80.0-100.0) fL MCH (25.0-35.0) pg MCHC (31.0-37.0) g/dL RDW (11.5-15.5) % Plt Count (150-450) k/uL Neutrophils % % Lymphocytes % % Monocytes % % Eosinophils % % Basophils % % Neutrophils # (1.3-7.7) k/uL Lymphocytes # (1.0-4.8) k/uL Monocytes # (0-1.0) k/uL Eosinophils # (0-0.7) k/uL Basophils # (0-0.2) k/uL Sodium (137-145) mmol/L Potassium (3.5-5.1) mmol/L Chloride (98-107) mmol/L Carbon Dioxide (22-30) mmol/L Anion Gap mmol/L BUN (9-20) mg/dL Creatinine (0.66-1.25) mg/dL Est GFR (CKD-EPI)AfAm (>60 ml/min/1.73 sqM) Est GFR (CKD-EPI)NonAf (>60 ml/min/1.73 sqM) Glucose (74-99) mg/dL POC Glucose (mg/dL) (75-99) mg/dL POC Glu Splunk Developer ID Calcium (8.4-10.2) mg/dL Total Bilirubin (0.2-1.3) mg/dL AST (17-59) U/L ALT (21-72) U/L Alkaline Phosphatase (38-126) U/L Total Creatine Kinase 156 (55-170) U/L CK-MB (CK-2) 1.6 (0.0-2.4) ng/mL CK-MB (CK-2) Rel Index 1.0 Troponin I <0.012 (0.000-0.034) ng/mL Total Protein (6.3-8.2) g/dL Albumin (3.5-5.0) g/dL Amylase (30-110) U/L Lipase (23-300) U/L - Radiology Data Radiology results: image reviewed (Chest and abdominal x-rays show no acute process) Disposition Clinical Impression: Vomiting Disposition: HOME SELF-CARE Condition: Stable Instructions: Acute Nausea and Vomiting (ED) Additional Instructions: Please follow-up with primary care physician in the next day or 2 for recheck and further evaluation. Return for chest pain, not tolerating fluids, worsening or change in symptoms, uncontrolled blood sugar, or other concerns. Prescriptions: Metoclopramide HCl [Reglan] 10 mg PO Q6HR PRN #15 tablet PRN Reason: Nausea Is patient prescribed a controlled substance at d/c from ED?: No Referrals: Yao Saldana MD [Primary Care Provider] - 1-2 days Time of Disposition: 22:49
[2017-12-03 21:32] LABS: Basophils % (A) 0 %; Eosinophils # (A) 0.1 k/uL (0-0.7); Eosinophils % (A) 1 %; HGB 13.4 gm/dL (13.0-17.5); Lymphocytes # (A) 2.3 k/uL (1.0-4.8); Lymphocytes % (A) 20 %; MCH 29.2 pg (25.0-35.0); MCHC 35.1 g/dL (31.0-37.0); MCV 83.2 fL (80.0-100.0); Monocytes # (A) 0.5 k/uL (0-1.0); Monocytes % (A) 5 %; Neutrophils # (A) 8.5 k/uL (1.3-7.7); Neutrophils % (A) 73 %; Platelet Count 244 k/uL (150-450); RBC 4.57 m/uL (4.30-5.90); RDW 12.9 % (11.5-15.5); WBC 11.6 k/uL (3.8-10.6)
[2017-12-03 21:43] LABS: Albumin 4.9 g/dL (3.5-5.0); Calcium 10.2 mg/dL (8.4-10.2); Potassium 5.3 mmol/L (3.5-5.1); Total Bilirubin 0.7 mg/dL (0.2-1.3); Total Protein 7.7 g/dL (6.3-8.2)
[2017-12-03 21:48] LABS: Creatine Kinase 156 U/L (55-170)
[2017-12-03] MEDS ORDERED: SODIUM CHLORIDE 0.9% 500 ML IV STA (21:52)
[2017-12-03 22:00] LABS: Creatine Kinase MB 1.6 ng/mL (0.0-2.4); Troponin I <0.012 ng/mL (0.000-0.034)
--- NOTE | 2017-12-03 22:08 | XR ---
EXAMINATION TYPE: XR chest 2V DATE OF EXAM: 12/03/2017 COMPARISON: 10/08/2016 HISTORY: Nausea and vomiting TECHNIQUE: Frontal and lateral views of the chest are obtained. FINDINGS: Heart and mediastinum are normal. Lungs are clear. Diaphragm is normal. Bony thorax is int act and there are chest leads. IMPRESSION: Normal chest. No change.
--- NOTE | 2017-12-03 22:09 | XR ---
EXAMINATION TYPE: XR KUB DATE OF EXAM: 12/03/2017 COMPARISON: NONE HISTORY: Nausea and vomiting TECHNIQUE: 2 views FINDINGS: There is no sign of intestinal obstruction or pneumoperitoneum. Fecal pattern is normal. Th ere is no evidence of a mass. Bowel gas pattern is normal. Lung bases are clear. There are no patholo gic calcifications over the kidneys. There is bilateral vas deferens calcification there is common in diabetes. IMPRESSION: Nonacute abdomen.
[2017-12-03 23:01] VITALS: BP 150/80; PULSE 73; RESP 16; TEMP 98.3
== END 2017-12-03 23:37 | disposition home or self-care (01) ==
LOC: EC 20:19
DX: R11.2 Nausea with vomiting, unspecified (principal); E11.9 Type 2 diabetes mellitus without complications; I10 Essential (primary) hypertension; M06.9 Rheumatoid arthritis, unspecified; M19.90 Unspecified osteoarthritis, unspecified site; Z83.3 Family history of diabetes mellitus; Z87.891 Personal history of nicotine dependence; Z79.899 Other long term (current) drug therapy; Z79.1 Long term (current) use of non-steroidal anti-inflammatories (NSAID); Z79.84 Long term (current) use of oral hypoglycemic drugs
CPT/HCPCS: 36415; 93005; 80053; 82150; 82550; 82553; 83690; 84484; 85025; 71046; 74018; 99284; 96374; 96375; 96361 ×2; J2405

== ENCOUNTER 2018-07-08 16:01 | Inpatient (IN) | payer MEDICARE ==
--- NOTE | 2018-07-08 16:41 | ED ---
General Adult HPI <Mo Singleton - Last Filed: 07/08/18 19:03> - General Source: patient, RN notes reviewed Mode of arrival: ambulatory Limitations: no limitations <Tarun Blunt - Last Filed: 07/08/18 20:51> - General Chief complaint: Nausea/Vomiting/Diarrhea Stated complaint: nausea Time Seen by Provider: 07/08/18 16:12 - History of Present Illness Initial comments: 57-year-old male with a past medical history of asthma, NIDDM, hypertension presents to the emergency department for a chief complaint of nausea 3 days. Patient states he has been nauseous and has not had an appetite. He does admit to one episode of vomiting earlier today. Patient states he also has generalized abdominal pain worsen the upper abdomen. Patient states his last bowel movement was earlier today and it was normal in consistency. Patient has been passing gas. Patient has a history of appendectomy and cholecystectomy. He denies fevers or chills at home. He denies diaphoresis. He denies any chest pain. Patient has no other complaints at this time including shortness of breath, chest pain, headache, or visual changes. (Tarun Blunt) - Related Data Home Medications Medication Instructions Recorded Confirmed ALPRAZolam [Xanax] 0.25 mg PO BID PRN 10/08/16 07/08/18 HYDROcodone/APAP 10-325MG [[place] 1 tab PO Q6H PRN 10/08/16 07/08/18 10-325] Hydrochlorothiazide [Hydrodiuril] 50 mg PO DAILY 10/08/16 07/08/18 Indomethacin [Indocin] 50 mg PO BID 10/08/16 07/08/18 glyBURIDE,MICRONIZED 6 mg PO BID 10/08/16 07/08/18 metFORMIN HCL 1,000 mg PO BID 12/03/17 07/08/18 Carvedilol [Coreg*] 12.5 mg PO BID-W/MEALS 06/22/18 07/08/18 cloNIDine HCL [Catapres] 0.2 mg PO BID 07/08/18 07/08/18 Previous Rx's Medication Instructions Recorded Lisinopril [Zestril] 20 mg PO BID #60 tab 10/10/16 amLODIPine BESYLATE [Norvasc] 10 mg PO DAILY #30 tablet 10/10/16 Allergies Allergy/AdvReac Type Severity Reaction Status Date / Time codeine Allergy Nausea Verified 07/08/18 16:44 Review of Systems ROS Other: All systems not noted in ROS Statement are negative. <Mo Singleton - Last Filed: 07/08/18 19:03> ROS Other: All systems not noted in ROS Statement are negative. <Tarun Blunt - Last Filed: 07/08/18 20:51> ROS Statement: Those systems with pertinent positive or pertinent negative responses have been documented in the HPI. Past Medical History Past Medical History: Asthma, Diabetes Mellitus, Hypertension, Osteoarthritis ( OA), Rheumatoid Arthritis (RA) Additional Past Medical History / Comment(s): . History of Any Multi-Drug Resistant Organisms: None Reported Past Surgical History: Appendectomy, Cholecystectomy, Orthopedic Surgery Additional Past Surgical History / Comment(s): L knee ACL/reconstruction. Past Anesthesia/Blood Transfusion Reactions: Postoperative Nausea & Vomiting ( PONV) Past Psychological History: Anxiety Smoking Status: Former smoker Past Alcohol Use History: None Reported Past Drug Use History: Marijuana - Past Family History Father Family Medical History: Diabetes Mellitus Mother Family Medical History: No Reported History Additional Family Medical History / Comment(s): . <Tarun Blunt P - Last Filed: 07/08/18 20:51> General Exam Limitations: no limitations General appearance: alert, in no apparent distress Head exam: Present: atraumatic, normocephalic, normal inspection Eye exam: Present: normal appearance, PERRL, EOMI. Absent: scleral icterus, conjunctival injection, periorbital swelling ENT exam: Present: normal exam, mucous membranes moist Neck exam: Present: normal inspection, full ROM. Absent: tenderness, meningismus, lymphadenopathy Respiratory exam: Present: normal lung sounds bilaterally. Absent: respiratory distress, wheezes, rales, rhonchi, stridor Cardiovascular Exam: Present: regular rate, normal rhythm, normal heart sounds. Absent: systolic murmur, diastolic murmur, rubs, gallop, clicks GI/Abdominal exam: Present: soft, tenderness (Mildly tender without guarding noted in the generalized abdomen, worse in the right and left upper quadrants as well as epigastric area.), normal bowel sounds. Absent: distended, guarding , rebound, rigid Neurological exam: Present: alert, oriented X3, CN II-XII intact Psychiatric exam: Present: normal affect, normal mood <Tarun Blunt - Last Filed: 07/08/18 20:51> Course <Mo Singleton - Last Filed: 07/08/18 19:03> <Tarun Blunt P - Last Filed: 07/08/18 20:51> Vital Signs 07/08/18 07/08/18 07/08/18 16:03 17:56 18:36 Temperature 98.1 F Pulse Rate 90 71 74 Respiratory 20 18 15 Rate Blood Pressure 106/65 101/72 125/80 O2 Sat by Pulse 96 98 96 Oximetry 07/08/18 19:48 Temperature 98.3 F Pulse Rate 79 Respiratory 18 Rate Blood Pressure 139/80 O2 Sat by Pulse 97 Oximetry - Reevaluation(s) Reevaluation #1: 07/08/18 19:03 Patient reevaluated by myself, Dr. Singleton. Patient resting comfortably in bed. Abdomen soft with mild diffuse tenderness. Pedal pulses 2/4 bilateral. Results reviewed. Patient appears in acute renal failure. Patient updated on results and plan. Case was discussed in detail with Dr. Saldana, who will admit his patient with nephrology consult. Patient will be provided IV fluids. (oM Singleton) EKG Findings - EKG Comments: EKG Findings:: Normal sinus rhythm, ventricular rate 76, LA interval 156, QTC 400, no evidence of ST elevation or depression <Tarun Blunt P - Last Filed: 07/08/18 20:51> Medical Decision Making - Lab Data Result diagrams: 07/08/18 17:02 07/08/18 17:02 <Mo Singleton - Last Filed: 07/08/18 19:03> - Lab Data Result diagrams: 07/08/18 17:02 07/08/18 17:02 <Tarun Blunt - Last Filed: 07/08/18 20:51> - Medical Decision Making 57-year-old male with a past medical history of NIDDM, hypertension, asthma presents to the emergency department for a chief complaint of nausea 3 days. Patient admits to one episode of vomiting. Patient states he has not had an appetite lately and has not been eating or drinking as much as normal. He denies fevers or chills. He does admit to upper abdominal pain. On exam patient does have some tenderness throughout the abdomen, no guarding noted. Generally unremarkable. EKG shows a normal sinus rhythm with a ventricular rate of 76, no evidence of ST elevation or depression, troponin negative. CBC is unremarkable. Sodium 134. Patient does have a creatinine elevated to 3.59 with a BUN of 66. Baseline creatinine is 0.9, no history of renal failure. Amylase and lipase are only mildly elevated. Acetone negative, urine does not demonstrate any evidence of infection. CT abdomen pelvis negative. Patient currently in acute renal failure. Patient given 2 L of fluids here in the emergency department. He will be admitted with nephrology consult. He will be kept on IV fluids (Tarun Blunt) - Lab Data Lab Results 07/08/18 07/08/18 07/08/18 Range/Units 17:02 17:02 17:02 WBC 10.6 (3.8-10.6) k/uL RBC 4.55 (4.30-5.90) m/uL Hgb 13.3 (13.0-17.5) gm/dL Hct 39.8 (39.0-53.0) % MCV 87.5 (80.0-100.0) fL MCH 29.2 (25.0-35.0) pg MCHC 33.4 (31.0-37.0) g/dL RDW 13.3 (11.5-15.5) % Plt Count 206 (150-450) k/uL Neutrophils % 75 % Lymphocytes % 15 % Monocytes % 7 % Eosinophils % 1 % Basophils % 0 % Neutrophils # 7.9 H (1.3-7.7) k/uL Lymphocytes # 1.6 (1.0-4.8) k/uL Monocytes # 0.7 (0-1.0) k/uL Eosinophils # 0.1 (0-0.7) k/uL Basophils # 0.0 (0-0.2) k/uL Sodium 134 L (137-145) mmol/L Potassium 5.0 (3.5-5.1) mmol/L Chloride 100 (98-107) mmol/L Carbon Dioxide 20 L (22-30) mmol/L Anion Gap 14 mmol/L BUN 66 H (9-20) mg/dL Creatinine 3.59 H (0.66-1.25) mg/dL Est GFR (CKD-EPI)AfAm 20 (>60 ml/min/1.73 sqM) Est GFR (CKD-EPI)NonAf 18 (>60 ml/min/1.73 sqM) Glucose 185 H (74-99) mg/dL Calcium 9.0 (8.4-10.2) mg/dL Total Bilirubin 1.0 (0.2-1.3) mg/dL AST 21 (17-59) U/L ALT 32 (21-72) U/L Alkaline Phosphatase 85 (38-126) U/L Troponin I <0.012 (0.000-0.034) ng/mL Total Protein 7.4 (6.3-8.2) g/dL Albumin 4.2 (3.5-5.0) g/dL Amylase 150 H (30-110) U/L Lipase 387 H (23-300) U/L Urine Color Urine Appearance (Clear) Urine pH (5.0-8.0) Ur Specific [place] (1.001-1.035) Urine Protein (Negative) Urine Glucose (UA) (Negative) Urine Ketones (Negative) Urine Blood (Negative) Urine Nitrite (Negative) Urine Bilirubin (Negative) Urine Urobilinogen (<2.0) mg/dL Ur Leukocyte Esterase (Negative) Urine RBC (0-5) /hpf Urine WBC (0-5) /hpf Ur Squamous Epith Cells (0-4) /hpf Urine Bacteria (None) /hpf Hyaline Casts (0-2) /lpf Urine Mucus (None) /hpf Urine Sperm (None) /hpf Acetone, Qual (Negative) 07/08/18 07/08/18 Range/Units 17:02 18:00 WBC (3.8-10.6) k/uL RBC (4.30-5.90) m/uL Hgb (13.0-17.5) gm/dL Hct (39.0-53.0) % MCV (80.0-100.0) fL MCH (25.0-35.0) pg MCHC (31.0-37.0) g/dL RDW (11.5-15.5) % Plt Count (150-450) k/uL Neutrophils % % Lymphocytes % % Monocytes % % Eosinophils % % Basophils % % Neutrophils # (1.3-7.7) k/uL Lymphocytes # (1.0-4.8) k/uL Monocytes # (0-1.0) k/uL Eosinophils # (0-0.7) k/uL Basophils # (0-0.2) k/uL Sodium (137-145) mmol/L Potassium (3.5-5.1) mmol/L Chloride (98-107) mmol/L Carbon Dioxide (22-30) mmol/L Anion Gap mmol/L BUN (9-20) mg/dL Creatinine (0.66-1.25) mg/dL Est GFR (CKD-EPI)AfAm (>60 ml/min/1.73 sqM) Est GFR (CKD-EPI)NonAf (>60 ml/min/1.73 sqM) Glucose (74-99) mg/dL Calcium (8.4-10.2) mg/dL Total Bilirubin (0.2-1.3) mg/dL AST (17-59) U/L ALT (21-72) U/L Alkaline Phosphatase (38-126) U/L Troponin I (0.000-0.034) ng/mL Total Protein (6.3-8.2) g/dL Albumin (3.5-5.0) g/dL Amylase (30-110) U/L Lipase (23-300) U/L Urine Color Yellow Urine Appearance Clear (Clear) Urine pH 5.0 (5.0-8.0) Ur Specific [place] 1.021 (1.001-1.035) Urine Protein 1+ H (Negative) Urine Glucose (UA) Negative (Negative) Urine Ketones Negative (Negative) Urine Blood Negative (Negative) Urine Nitrite Negative (Negative) Urine Bilirubin 1+ H (Negative) Urine Urobilinogen 2.0 (<2.0) mg/dL Ur Leukocyte Esterase Negative (Negative) Urine RBC 1 (0-5) /hpf Urine WBC 3 (0-5) /hpf Ur Squamous Epith Cells <1 (0-4) /hpf Urine Bacteria Rare H (None) /hpf Hyaline Casts 9 H (0-2) /lpf Urine Mucus Rare H (None) /hpf Urine Sperm Rare (None) /hpf Acetone, Qual Negative (Negative) Disposition <Mo Singleton - Last Filed: 07/08/18 19:03> Is patient prescribed a controlled substance at d/c from ED?: No Time of Disposition: 20:50 <Tarun Blunt P - Last Filed: 07/08/18 20:51> Clinical Impression: Acute kidney failure, Hyponatremia Disposition: ADMITTED IP TO THIS HOSP Condition: Good Referrals: Yao Saldana MD [Primary Care Provider] - 1-2 days
[2018-07-08] MEDS ORDERED: ONDANSETRON 4 MG/2 ML VIAL IVP STA (16:42)
[2018-07-08] MEDS ORDERED: KETOROLAC 30 MG/ML 1 ML VIAL IVP STA (16:42)
[2018-07-08 18:02] LABS: Basophils % (A) 0 %; Eosinophils # (A) 0.1 k/uL (0-0.7); Eosinophils % (A) 1 %; HCT 39.8 % (39.0-53.0); HGB 13.3 gm/dL (13.0-17.5); Lymphocytes # (A) 1.6 k/uL (1.0-4.8); Lymphocytes % (A) 15 %; MCH 29.2 pg (25.0-35.0); MCHC 33.4 g/dL (31.0-37.0); MCV 87.5 fL (80.0-100.0); Mean Platelet Volume 8.2; Monocytes # (A) 0.7 k/uL (0-1.0); Monocytes % (A) 7 %; Neutrophils # (A) 7.9 k/uL (1.3-7.7); Neutrophils % (A) 75 %; Platelet Count 206 k/uL (150-450); RBC 4.55 m/uL (4.30-5.90); RDW 13.3 % (11.5-15.5); WBC 10.6 k/uL (3.8-10.6)
[2018-07-08 18:12] LABS: Albumin 4.2 g/dL (3.5-5.0); Total Protein 7.4 g/dL (6.3-8.2)
[2018-07-08] MEDS ORDERED: SODIUM CHLORIDE 0.9% 1,000 ML IV STA (18:22)
[2018-07-08 18:30] LABS: Appearance,Urine Clear (Clear); Bacteria,Urine Rare /hpf; Bilirubin,Urine 1+ (Negative); Blood,Urine Negative (Negative); Color,Urine Yellow; Glucose,Urine (UA) Negative (Negative); Hyaline Casts,Urine 9 /lpf (0-2); Ketones,Urine Negative (Negative); Leukocyte Esterase,Urine Negative (Negative); Mucus,Urine Rare /hpf; Nitrite,Urine Negative (Negative); Protein,Urine 1+ (Negative); RBC,Urine 1 /hpf (0-5); Specific Gravity,Urine 1.021 (1.001-1.035); Sperm,Urine Rare /hpf; Squamous Epithelial Cell,Urine <1 /hpf (0-4); WBC,Urine 3 /hpf (0-5)
[2018-07-08] MEDS ORDERED: SODIUM CHLORIDE 0.9% 1,000 ML IV ONE (18:44)
--- NOTE | 2018-07-08 20:15 | CT ---
EXAMINATION TYPE: CT abdomen pelvis wo con DATE OF EXAM: 07/08/2018 COMPARISON: None HISTORY: Nausea and abdominal pain CT DLP: 654.6 mGycm Automated exposure control for dose reduction was used. TECHNIQUE: Helical acquisition of images was performed from the lung bases through the pelvis. FINDINGS: Lung bases are clear. There is no pleural effusion. Heart size is normal. There are clips from cholecystectomy. Liver shows no focal defect. Spleen appears normal. There is no pancreatic mass. The bile ducts are not dilated. There is no adrenal mass. Kidneys have normal size and contour. There is no hydronephrosis. Ureters a re not dilated. Bladder distends smoothly. There is no inguinal hernia. There is calcified vas defere ns. There is no mesenteric edema or adenopathy. There is no ascites. There are a few large bowel dive rticula. There is no sign of diverticulitis. There is no mesenteric edema or adenopathy. Appendix is not seen. There is no sign of appendicitis. I see no bony destructive process. The bony pelvis appear s intact. IMPRESSION: NO ACUTE ABNORMALITY IN THE CT SCAN OF THE ABDOMEN AND PELVIS. I DO NOT SEE A CAUSE FOR ABDOMINAL PHUONG N.
[2018-07-08] MEDS ORDERED: ONDANSETRON 4 MG/2 ML VIAL IVP PRN (20:52)
[2018-07-08] MEDS ORDERED: NALOXONE 0.4 MG/ML 1 ML VIAL IV PRN (20:52)
[2018-07-08] MEDS ORDERED: ACETAMINOPHEN TAB 325 MG TAB PO PRN (21:49)
[2018-07-08] MEDS ORDERED: MORPHINE SULFATE 4 MG/ML SYRINGE IVP PRN (21:49)
[2018-07-08 22:21] LABS: Glucose,Whole Blood 168 mg/dL (75-99)
[2018-07-08] MEDS: SODIUM CHLORIDE 0.9% 1,000 ML IV SCH (23:09)
[2018-07-09] MEDS ORDERED: ALPRAZolam 0.25 MG TAB PO PRN (01:25)
[2018-07-09] MEDS: SODIUM CHLORIDE 0.9% 1,000 ML IV SCH ×3 (06:16→16:04)
[2018-07-09 07:49] LABS: Glucose,Whole Blood 170 mg/dL (75-99)
[2018-07-09] MEDS: HYDROCHLOROTHIAZIDE 50 MG TAB PO SCH (07:59)
[2018-07-09] MEDS: CARVEDILOL 12.5 MG TAB PO SCH ×2 (07:59→16:04)
[2018-07-09] MEDS: glipiZIDE 10 MG TAB PO SCH (07:59)
[2018-07-09] MEDS: INSULIN ASPART 100 UNIT/ML 1 ML 10 ML VIAL SQ SCH ×4 (07:59→21:00)
[2018-07-09] MEDS: cloNIDine HCL 0.1 MG TAB PO SCH ×2 (07:59→21:00)
[2018-07-09] MEDS: LISINOPRIL 20 MG TAB PO SCH ×2 (07:59→21:00)
[2018-07-09] MEDS: amLODIPine 10 MG TAB PO SCH (07:59)
[2018-07-09] MEDS: HYDROcodone/APAP 10-325MG 1 EACH TAB PO PRN ×3 (09:19→21:38)
[2018-07-09 10:07] LABS: Basophils % (A) 0 %; Eosinophils # (A) 0.1 k/uL (0-0.7); Eosinophils % (A) 1 %; HCT 35.8 % (39.0-53.0); HGB 12.3 gm/dL (13.0-17.5); Lymphocytes # (A) 1.3 k/uL (1.0-4.8); Lymphocytes % (A) 12 %; MCH 30.2 pg (25.0-35.0); MCHC 34.3 g/dL (31.0-37.0); MCV 87.9 fL (80.0-100.0); Mean Platelet Volume 8.6; Monocytes # (A) 0.8 k/uL (0-1.0); Monocytes % (A) 8 %; Neutrophils # (A) 8.2 k/uL (1.3-7.7); Neutrophils % (A) 78 %; Platelet Count 168 k/uL (150-450); RBC 4.07 m/uL (4.30-5.90); RDW 13.3 % (11.5-15.5); WBC 10.6 k/uL (3.8-10.6)
[2018-07-09 10:24] LABS: Albumin 3.8 g/dL (3.5-5.0); Calcium 8.1 mg/dL (8.4-10.2); Potassium 4.9 mmol/L (3.5-5.1); Total Bilirubin 0.7 mg/dL (0.2-1.3); Total Protein 6.5 g/dL (6.3-8.2)
[2018-07-09 12:03] LABS: Glucose,Whole Blood 157 mg/dL (75-99)
--- NOTE | 2018-07-09 12:51 | P.NPCON ---
History of Present Illness - Reason for Consult acute renal failure - History of Present Illness Reason for consultation: Acute kidney injury History of present illness: Patient is a 57-year-old male seen in renal consultation for acute kidney injury. His baseline creatinine is 1 and was elevated at 3.59 on admission. It is down to 2.91 today with IV hydration. Currently maintained on normal saline at 1 50 mL an hour. Patient presented to the hospital with nausea and vomiting which started Friday after he ate dinner. Denies any diarrhea. Denies use of NSAIDs. No fever or chills. No episodes of vomiting today. He does feel hungry. No abdominal pain. Blood pressure was low on admission at 101/72 and is now on the higher side. He is maintained on antihypertensives including lisinopril. He was also on metformin which is currently held. Hydrochlorothiazide is also held. I do note Indocin and his home medications but again the patient states he only takes [place] for pain. Patient states his mother was on hemodialysis at the age of 80 but is unsure of the etiology. Vital signs are stable. General: The patient appeared well nourished and normally developed. HEENT: Head exam is unremarkable. Neck is without jugular venous distension. LUNGS: Lungs are clear to auscultation and percussion. Breath sounds decreased. HEART: Rate and Rhythm are regular. First and second heart sounds normal. No murmurs, rubs or gallops. ABDOMEN: Abdominal exam reveals normal bowel sounds. Non-tender and non- distended. No evidence of peritonitis. EXTREMITITES: No clubbing, cyanosis, or edema. Past Medical History Past Medical History: Asthma, Diabetes Mellitus, Hypertension, Osteoarthritis ( OA), Rheumatoid Arthritis (RA) Additional Past Medical History / Comment(s): . History of Any Multi-Drug Resistant Organisms: None Reported Past Surgical History: Appendectomy, Cholecystectomy, Orthopedic Surgery Additional Past Surgical History / Comment(s): L knee ACL/reconstruction. Past Anesthesia/Blood Transfusion Reactions: Postoperative Nausea & Vomiting ( PONV) Past Psychological History: Anxiety Additional Psychological History / Comment(s): . Smoking Status: Former smoker Past Alcohol Use History: None Reported Additional Past Alcohol Use History / Comment(s): Pt states he started smoking in 1981 and quit in 2005. 1 PPD Past Drug Use History: Marijuana Additional Drug Use History / Comment(s): daily - Past Family History Father Family Medical History: Diabetes Mellitus Mother Family Medical History: No Reported History Additional Family Medical History / Comment(s): . Medications and Allergies Home Medications Medication Instructions Recorded Confirmed Type ALPRAZolam [Xanax] 0.25 mg PO BID PRN 10/08/16 07/08/18 History HYDROcodone/APAP 10-325MG [[place] 1 tab PO Q6H PRN 10/08/16 07/08/18 History 10-325] Hydrochlorothiazide [Hydrodiuril] 50 mg PO DAILY 10/08/16 07/08/18 History Indomethacin [Indocin] 50 mg PO BID 10/08/16 07/08/18 History glyBURIDE,MICRONIZED 6 mg PO BID 10/08/16 07/08/18 History Lisinopril [Zestril] 20 mg PO BID #60 tab 10/10/16 07/08/18 Rx amLODIPine BESYLATE [Norvasc] 10 mg PO DAILY #30 tablet 10/10/16 07/08/18 Rx metFORMIN HCL 1,000 mg PO BID 12/03/17 07/08/18 History Carvedilol [Coreg*] 12.5 mg PO BID-W/MEALS 06/22/18 07/08/18 History cloNIDine HCL [Catapres] 0.2 mg PO BID 07/08/18 07/08/18 History Allergies Allergy/AdvReac Type Severity Reaction Status Date / Time codeine Allergy Nausea Verified 07/08/18 16:44 Physical Exam Vitals: Vital Signs Temp Pulse Pulse Resp BP BP BP 07/09/18 07:16 98.7 F 82 18 146/84 07/09/18 01:00 86 20 150/94 07/08/18 22:10 98.7 F 90 20 171/90 07/08/18 21:31 80 16 136/82 07/08/18 19:48 98.3 F 79 18 139/80 07/08/18 18:36 74 15 125/80 07/08/18 17:56 71 18 101/72 07/08/18 16:03 98.1 F 90 20 106/65 Pulse Ox 07/09/18 07:16 97 07/09/18 01:00 07/08/18 22:10 97 07/08/18 21:31 98 07/08/18 19:48 97 07/08/18 18:36 96 07/08/18 17:56 98 07/08/18 16:03 96 Intake and Output 07/08/18 07/09/18 07/09/18 22:59 06:59 14:59 Intake Total 200 Balance 200 Intake: Oral 200 Other: Voiding Method Toilet Toilet # Voids 1 Weight 92.442 kg Results - Lab Results Most recent lab results Calcium 8.1 mg/dL (8.4-10.2) L 07/09/18 08:58 07/09/18 08:58 07/09/18 08:58 Assessment and Plan Plan: Assessment: 1. Nonoliguric acute kidney injury mostly prerenal secondary to intravascular volume depletion from nausea and vomiting. Creatinine 3.59 on admission and is down to 2.91 today. Recent creatinine 1. 2. Metabolic acidosis secondary to acute kidney injury and IV fluids. 3. Nausea and vomiting related to viral gastroenteritis most likely. Better. 4. Diabetes mellitus. 5. Benign hypertension. 6. Hypervolemic hyponatremia, improved. Plan: Maintain normal saline at 150 mL an hour. Monitor bicarb. Maintain current antihypertensives as blood pressure is on the higher side today. Can Hep-Lock IV fluids tomorrow if able to tolerate oral intake today. Repeat electrolytes in the morning. Thank you for the consultation. I will continue to follow the patient with you during his hospital stay.
--- NOTE | 2018-07-09 14:00 | P.HPIM ---
History of Present Illness H&P Date: 07/09/18 Chief Complaint: weakness, nausea, vomiting 57-year-old male with a past medical history significant for diabetes mellitus, hypertension, and osteoarthritis who presented to the emergency room with a chief complaint of generalized malaise, nausea, and vomiting. Patient reports he began to feel unwell on Friday. He reports episodes of vomiting and also dry heaves Friday and Friday. He denied diarrhea but did report his stools were looser than normal. He also reports abdominal pain, near the epigastric region. He denies chest pain. Denies shortness of breath. Denies fever or chills. Patient does have a history of appendectomy and cholecystectomy. CT abdomen and pelvis was negative for an acute process. Laboratory data upon admission reveals white count 10.6. Hemoglobin 13.3. Platelet count 206. Sodium 134. Potassium 5.0. BUN 66. Creatinine 3.59. Glucose 185. AST 21. ALT 32. Repeat blood work from this morning reveals white count 10.6. Hemoglobin 12.3. Platelet count 168. Sodium 136. Potassium 4.9. BUN 60. Creatinine 2.91. Urinalysis reveals: 1+ protein, 1+ bilirubin, rare bacteria, hyaline casts 9 The patient was admitted to the hospital under the care of Dr. Saldana. Consultations were placed to nephrology. REVIEW OF SYSTEMS: Those systems with pertinent positive or pertinent negative responses have been documented in the HPI PHYSICAL EXAM: GENERAL: This is a 57-year-old male in no apparent distress at the time of examination. Pleasant and cooperative. HEENT: Head is atraumatic, normocephalic. Pupils are equal, round, and reactive to light. Sclerae anicteric. Conjunctivae are clear. Mucus membranes of the mouth are moist. Neck is supple. RESPIRATORY: Clear to auscultation. No wheezes, rales, or rhonchi. No use of accessory muscles. Patient maintaining oxygen saturation greater than 92%. No chest wall tenderness is noted on palpation or with deep breathing. CARDIOVASCULAR: Regular rate and rhythm. S1 and S2 noted. Systolic murmur auscultated. No JVD noted. No S3 or S4 noted. GASTROINTESTINAL: No distention noted. Abdomen soft and round. Normal active bowel sounds auscultated x 4 quadrants. Minimal pain upon palpation of epigastric region. No pain otherwise when abdomen palpated. INTEGUMENTARY: No cyanosis. No jaundice. No rashes noted. No cellulitis noted. EXTREMITIES: 2+ peripheral pulses. No evidence of peripheral edema. No calf tenderness noted. NEUROLOGIC: Cranial nerves II-XII intact. PSYCHIATRIC: Awake, alert, and oriented X 3. Appropriate affect. Intact judgement and insight. ASSESSMENT: Acute kidney injury, creatinine 3.59 on admission, secondary to intravascular volume depletion due to vomiting Nausea, vomiting, and epigastric discomfort, likely secondary to viral gastroenteritis, improved Metabolic acidosis secondary to acute kidney injury Diabetes mellitus, type II Hypertension Hypovolemic hyponatremia, improved History of osteoarthritis and rheumatoid arthritis Daily cannabis use Obesity: BMI 32.9 PLAN: Nephrology on consult. Appreciate recommendations and input Continue IV fluids Avoid nephrotoxic agents Monitor kidney function. Repeat labs in a.m. Home meds as appropriate GI prophylaxis: Pepcid 20mg IV BID DVT prophylaxis: SCDs to bilateral lower extremities Monitor vital signs and address as appropriate Discharge planning: Patient to return home when stable Further recommendations pending patient's course Nurse practitioner note has been reviewed by physician. Signing provider agrees with the documented findings, assessment, and plan of care. Past Medical History Past Medical History: Asthma, Diabetes Mellitus, Hypertension, Osteoarthritis ( OA), Rheumatoid Arthritis (RA) Additional Past Medical History / Comment(s): . History of Any Multi-Drug Resistant Organisms: None Reported Past Surgical History: Appendectomy, Cholecystectomy, Orthopedic Surgery Additional Past Surgical History / Comment(s): L knee ACL/reconstruction. Past Anesthesia/Blood Transfusion Reactions: Postoperative Nausea & Vomiting ( PONV) Past Psychological History: Anxiety Additional Psychological History / Comment(s): . Smoking Status: Former smoker Past Alcohol Use History: None Reported Additional Past Alcohol Use History / Comment(s): Pt states he started smoking in 1981 and quit in 2005. 1 PPD Past Drug Use History: Marijuana Additional Drug Use History / Comment(s): daily - Past Family History Father Family Medical History: Diabetes Mellitus Mother Family Medical History: No Reported History Additional Family Medical History / Comment(s): . Medications and Allergies Home Medications Medication Instructions Recorded Confirmed Type ALPRAZolam [Xanax] 0.25 mg PO BID PRN 10/08/16 07/08/18 History HYDROcodone/APAP 10-325MG [[place] 1 tab PO Q6H PRN 10/08/16 07/08/18 History 10-325] Hydrochlorothiazide [Hydrodiuril] 50 mg PO DAILY 10/08/16 07/08/18 History Indomethacin [Indocin] 50 mg PO BID 10/08/16 07/08/18 History glyBURIDE,MICRONIZED 6 mg PO BID 10/08/16 07/08/18 History Lisinopril [Zestril] 20 mg PO BID #60 tab 10/10/16 07/08/18 Rx amLODIPine BESYLATE [Norvasc] 10 mg PO DAILY #30 tablet 10/10/16 07/08/18 Rx metFORMIN HCL 1,000 mg PO BID 12/03/17 07/08/18 History Carvedilol [Coreg*] 12.5 mg PO BID-W/MEALS 06/22/18 07/08/18 History cloNIDine HCL [Catapres] 0.2 mg PO BID 07/08/18 07/08/18 History Allergies Allergy/AdvReac Type Severity Reaction Status Date / Time codeine Allergy Nausea Verified 07/08/18 16:44 Physical Exam Vitals: Vital Signs Temp Pulse Pulse Resp BP BP BP 07/09/18 07:16 98.7 F 82 18 146/84 07/09/18 01:00 86 20 150/94 07/08/18 22:10 98.7 F 90 20 171/90 07/08/18 21:31 80 16 136/82 07/08/18 19:48 98.3 F 79 18 139/80 07/08/18 18:36 74 15 125/80 07/08/18 17:56 71 18 101/72 07/08/18 16:03 98.1 F 90 20 106/65 Pulse Ox 07/09/18 07:16 97 07/09/18 01:00 07/08/18 22:10 97 07/08/18 21:31 98 07/08/18 19:48 97 07/08/18 18:36 96 07/08/18 17:56 98 07/08/18 16:03 96 Intake and Output 07/08/18 07/09/18 07/09/18 22:59 06:59 14:59 Intake Total 200 Balance 200 Intake: Oral 200 Other: Voiding Method Toilet Toilet # Voids 1 Weight 92.442 kg Results CBC & Chem 7: 07/09/18 08:58 07/09/18 08:58 Labs: Abnormal Lab Results - Last 24 Hours (Table) 07/08/18 07/08/18 07/08/18 Range/Units 17:02 17:02 18:00 RBC (4.30-5.90) m/uL Hgb (13.0-17.5) gm/dL Hct (39.0-53.0) % Neutrophils # 7.9 H (1.3-7.7) k/uL Sodium 134 L (137-145) mmol/L Carbon Dioxide 20 L (22-30) mmol/L BUN 66 H (9-20) mg/dL Creatinine 3.59 H (0.66-1.25) mg/dL Glucose 185 H (74-99) mg/dL POC Glucose (mg/dL) (75-99) mg/dL Calcium (8.4-10.2) mg/dL Amylase 150 H (30-110) U/L Lipase 387 H (23-300) U/L Urine Protein 1+ H (Negative) Urine Bilirubin 1+ H (Negative) Urine Bacteria Rare H (None) /hpf Hyaline Casts 9 H (0-2) /lpf Urine Mucus Rare H (None) /hpf 07/08/18 07/09/18 07/09/18 Range/Units 22:17 07:46 08:58 RBC 4.07 L (4.30-5.90) m/uL Hgb 12.3 L (13.0-17.5) gm/dL Hct 35.8 L (39.0-53.0) % Neutrophils # 8.2 H (1.3-7.7) k/uL Sodium (137-145) mmol/L Carbon Dioxide (22-30) mmol/L BUN (9-20) mg/dL Creatinine (0.66-1.25) mg/dL Glucose (74-99) mg/dL POC Glucose (mg/dL) 168 H 170 H (75-99) mg/dL Calcium (8.4-10.2) mg/dL Amylase (30-110) U/L Lipase (23-300) U/L Urine Protein (Negative) Urine Bilirubin (Negative) Urine Bacteria (None) /hpf Hyaline Casts (0-2) /lpf Urine Mucus (None) /hpf 07/09/18 Range/Units 08:58 RBC (4.30-5.90) m/uL Hgb (13.0-17.5) gm/dL Hct (39.0-53.0) % Neutrophils # (1.3-7.7) k/uL Sodium 136 L (137-145) mmol/L Carbon Dioxide 19 L (22-30) mmol/L BUN 60 H (9-20) mg/dL Creatinine 2.91 H (0.66-1.25) mg/dL Glucose 162 H (74-99) mg/dL POC Glucose (mg/dL) (75-99) mg/dL Calcium 8.1 L (8.4-10.2) mg/dL Amylase (30-110) U/L Lipase (23-300) U/L Urine Protein (Negative) Urine Bilirubin (Negative) Urine Bacteria (None) /hpf Hyaline Casts (0-2) /lpf Urine Mucus (None) /hpf Thrombosis Risk Factor Assmnt - Choose All That Apply Any of the Below Risk Factors Present?: Yes Each Factor Represents 1 point: Age 41-60 years Other Risk Factors: No Other congenital or acquired thrombophilia - If yes, enter type in comment: No Thrombosis Risk Factor Assessment Total Risk Factor Score: 1 Thrombosis Risk Factor Assessment Level: Low Risk
[2018-07-09 17:23] LABS: Glucose,Whole Blood 145 mg/dL (75-99)
[2018-07-09 20:57] LABS: Glucose,Whole Blood 180 mg/dL (75-99)
[2018-07-09] MEDS: FAMOTIDINE 20 MG/2 ML VIAL IV SCH (21:00)
[2018-07-09 23:52] VITALS: TEMP 98
[2018-07-10] MEDS: HYDROcodone/APAP 10-325MG 1 EACH TAB PO PRN ×2 (04:17→10:34)
[2018-07-10] MEDS: SODIUM CHLORIDE 0.9% 1,000 ML IV SCH ×2 (04:53→06:13)
[2018-07-10 06:06] VITALS: BP 122/72; PULSE 71; RESP 15
[2018-07-10] MEDS: INSULIN ASPART 100 UNIT/ML 1 ML 10 ML VIAL SQ SCH ×2 (07:15→12:42)
[2018-07-10] MEDS: amLODIPine 10 MG TAB PO SCH (07:34)
[2018-07-10] MEDS: CARVEDILOL 12.5 MG TAB PO SCH (07:34)
[2018-07-10] MEDS: FAMOTIDINE 20 MG/2 ML VIAL IV SCH (07:34)
[2018-07-10] MEDS: cloNIDine HCL 0.1 MG TAB PO SCH (07:34)
[2018-07-10] MEDS: HYDROCHLOROTHIAZIDE 50 MG TAB PO SCH (07:35)
[2018-07-10] MEDS: LISINOPRIL 20 MG TAB PO SCH (07:35)
[2018-07-10] MEDS: glipiZIDE 10 MG TAB PO SCH (07:35)
[2018-07-10 07:45] LABS: Glucose,Whole Blood 120 mg/dL (75-99)
[2018-07-10 08:59] LABS: Calcium 8.7 mg/dL (8.4-10.2); Potassium 4.8 mmol/L (3.5-5.1)
--- NOTE | 2018-07-10 09:27 | P.DS ---
Providers Date of admission: 07/08/18 19:04 Expected date of discharge: 07/10/18 Attending physician: Yao Saldana Consults: 07/08/18 20:52 Consult Physician Stat Consulting Provider: Kiera Vargas Consult Reason/Comments: acute kidney failure, hyponatremia Do you want consulting provider notified?: Yes Primary care physician: Yao Saldana Hospital Course: 57-year-old male with a past medical history significant for diabetes mellitus, hypertension, and osteoarthritis who presented to the emergency room with a chief complaint of generalized malaise, nausea, and vomiting. Patient reports he began to feel unwell on Friday. He reports episodes of vomiting and also dry heaves Friday and Friday. He denied diarrhea but did report his stools were looser than normal. He also reports abdominal pain, near the epigastric region. He denies chest pain. Denies shortness of breath. Denies fever or chills. Patient does have a history of appendectomy and cholecystectomy. CT abdomen and pelvis was negative for an acute process. Laboratory data upon admission reveals white count 10.6. Hemoglobin 13.3. Platelet count 206. Sodium 134. Potassium 5.0. BUN 66. Creatinine 3.59. Glucose 185. AST 21. ALT 32. Repeat blood work from this morning reveals white count 10.6. Hemoglobin 12.3. Platelet count 168. Sodium 136. Potassium 4.9. BUN 60. Creatinine 2.91. Urinalysis reveals: 1+ protein, 1+ bilirubin, rare bacteria, hyaline casts 9 The patient was admitted to the hospital under the care of Dr. Saldana. Consultations were placed to nephrology. The patient was given IV fluid boluses in addition to continuous IV fluid infusions. His creatinine has improved to 2.10. He is making good urine output. He is stable for discharge home today. Patient encouraged to increase fluid intake. Patient to hold Metformin and Indocin at the time of discharge until he is evaluated by Dr. Saldana at his follow up appointment. ASSESSMENT: Acute kidney injury, creatinine 3.59 on admission, secondary to intravascular volume depletion due to vomiting Nausea, vomiting, and epigastric discomfort, likely secondary to viral gastroenteritis, improved Metabolic acidosis secondary to acute kidney injury Diabetes mellitus, type II Hypertension Hypovolemic hyponatremia, improved History of osteoarthritis and rheumatoid arthritis Daily cannabis use Obesity: BMI 32.9 Nurse practitioner note has been reviewed by physician. Signing provider agrees with the documented findings, assessment, and plan of care. Patient Condition at Discharge: Stable Plan - Discharge Summary Discharge Rx Participant: No New Discharge Prescriptions: Continue HYDROcodone/APAP 10-325MG [[place] 10-325] 1 tab PO Q6H PRN PRN Reason: Pain Hydrochlorothiazide [Hydrodiuril] 50 mg PO DAILY ALPRAZolam [Xanax] 0.25 mg PO BID PRN PRN Reason: Anxiety glyBURIDE,MICRONIZED 6 mg PO BID Lisinopril [Zestril] 20 mg PO BID #60 tab amLODIPine BESYLATE [Norvasc] 10 mg PO DAILY #30 tablet Carvedilol [Coreg*] 12.5 mg PO BID-W/MEALS cloNIDine HCL [Catapres] 0.2 mg PO BID Discontinued Indomethacin [Indocin] 50 mg PO BID metFORMIN HCL 1,000 mg PO BID Discharge Medication List ALPRAZolam [Xanax] 0.25 mg PO BID PRN 10/08/16 [History] HYDROcodone/APAP 10-325MG [[place] 10-325] 1 tab PO Q6H PRN 10/08/16 [History] Hydrochlorothiazide [Hydrodiuril] 50 mg PO DAILY 10/08/16 [History] glyBURIDE,MICRONIZED 6 mg PO BID 10/08/16 [History] Lisinopril [Zestril] 20 mg PO BID #60 tab 10/10/16 [Rx] amLODIPine BESYLATE [Norvasc] 10 mg PO DAILY #30 tablet 10/10/16 [Rx] Carvedilol [Coreg*] 12.5 mg PO BID-W/MEALS 06/22/18 [History] cloNIDine HCL [Catapres] 0.2 mg PO BID 07/08/18 [History] Follow up Appointment(s)/Referral(s): Kiera Vargas MD [STAFF PHYSICIAN] - 1 Week Yao Saldana MD [Primary Care Provider] - 1-2 days Activity/Diet/Wound Care/Special Instructions: Do not take your Indocin or Metformin until you are seen by Dr. Saldana at your follow up appointment Discharge Disposition: HOME SELF-CARE
[2018-07-10 12:27] LABS: Glucose,Whole Blood 180 mg/dL (75-99)
--- NOTE | 2018-07-10 20:09 | PN ---
PROGRESS NOTE Patient is seen for followup for acute kidney injury. Patient denies any significant complaints. He is actually being discharged today. On examination this morning, blood pressure was 122/72, heart rate 75 per minute. Patient is afebrile. EXAMINATION OF THE HEART: S1, S2. EXAMINATION OF LUNGS: Bilateral breath sounds are heard. ABDOMEN: Soft, non-tender. Examination of lower extremities shows no significant edema. HAND TOOL FILER exam is grossly intact. Labs today show sodium 140, potassium 4.8, BUN 42, serum creatinine 2.1. ASSESSMENT: 1. Acute kidney injury, mainly prerenal, currently improved with IV fluid administration. 2. Metabolic acidosis associated with renal failure, now improved. 3. Nausea and vomiting, most likely secondary to underlying viral gastroenteritis, now improved. MMODL / IJN: [id number] /
== END 2018-07-10 12:43 | disposition home or self-care (01) | DRG 683 ==
LOC: EC 16:01 → 4MS4W 19:04
PROVIDERS: ADMIT Family Medicine; ATTEND Family Medicine
DX: N17.9 Acute kidney failure, unspecified (principal); E87.2 Acidosis; E87.1 Hypo-osmolality and hyponatremia; M06.9 Rheumatoid arthritis, unspecified; J45.909 Unspecified asthma, uncomplicated; I10 Essential (primary) hypertension; F41.9 Anxiety disorder, unspecified; E86.9 Volume depletion, unspecified; E66.9 Obesity, unspecified; E11.9 Type 2 diabetes mellitus without complications; A08.4 Viral intestinal infection, unspecified; M19.90 Unspecified osteoarthritis, unspecified site; Z68.32 Body mass index [BMI] 32.0-32.9, adult; Z79.84 Long term (current) use of oral hypoglycemic drugs; Z79.899 Other long term (current) drug therapy; Z90.49 Acquired absence of other specified parts of digestive tract; Z88.5 Allergy status to narcotic agent; Z87.891 Personal history of nicotine dependence; Z83.3 Family history of diabetes mellitus
CPT/HCPCS: 36415; 74176; 80048; 80053; 81001; 82009; 82150; 83036; 83690; 83735; 84484; 85025; 93005; 96361; 96374; 96375; 99285

== ENCOUNTER 2021-08-06 08:09 | Emergency (ER) | payer MEDICARE ==
--- NOTE | 2021-08-06 08:14 | ED ---
General Adult HPI - General Stated complaint: unable to sleep, nausea - History of Present Illness Initial comments: 60-year-old male with a past medical history diabetes mellitus, hypertension, asthma presents to the emergency room for chief complaint of feeling like he can't sleep. States he has had this problem for a while. Patient states he used to be taking Xanax but then wanted off of them and now he can't sleep. Patient has no other complaints at this time including shortness of breath, chest pain, abdominal pain, nausea or vomiting, headache, or visual changes. - Related Data Home Medications Medication Instructions Recorded Confirmed ALPRAZolam [Xanax] 0.25 mg PO BID PRN 10/08/16 07/08/18 HYDROcodone/APAP 10-325MG [[place] 1 tab PO Q6H PRN 10/08/16 07/08/18 10-325] glyBURIDE,MICRONIZED [Glyburide 6 mg PO BID 10/08/16 07/08/18 Micronized] hydroCHLOROthiazide [Hydrodiuril] 50 mg PO DAILY 10/08/16 07/08/18 carvediloL [Coreg*] 12.5 mg PO BID-W/MEALS 06/22/18 07/08/18 cloNIDine HCL [Catapres] 0.2 mg PO BID 07/08/18 07/08/18 Previous Rx's Medication Instructions Recorded amLODIPine BESYLATE [Norvasc] 10 mg PO DAILY #30 tablet 10/10/16 lisinopriL [Zestril] 20 mg PO BID #60 tab 10/10/16 Allergies Allergy/AdvReac Type Severity Reaction Status Date / Time codeine Allergy Nausea Verified 08/06/21 08:11 Review of Systems ROS Statement: Those systems with pertinent positive or pertinent negative responses have been documented in the HPI. ROS Other: All systems not noted in ROS Statement are negative. Past Medical History Past Medical History: Asthma, Diabetes Mellitus, Hypertension, Osteoarthritis (OA), Rheumatoid Arthritis (RA) Additional Past Medical History / Comment(s): . History of Any Multi-Drug Resistant Organisms: None Reported Past Surgical History: Appendectomy, Cholecystectomy, Orthopedic Surgery Additional Past Surgical History / Comment(s): L knee ACL/reconstruction. Past Anesthesia/Blood Transfusion Reactions: Postoperative Nausea & Vomiting (PONV) Past Psychological History: Anxiety Additional Psychological History / Comment(s): . Past Alcohol Use History: None Reported Additional Past Alcohol Use History / Comment(s): Pt states he started smoking in 1981 and quit in 2005. 1 PPD Past Drug Use History: Marijuana Additional Drug Use History / Comment(s): daily - Past Family History Father Family Medical History: Diabetes Mellitus Mother Family Medical History: No Reported History Additional Family Medical History / Comment(s): . General Exam General appearance: alert, in no apparent distress Head exam: Present: atraumatic Eye exam: Present: normal appearance, PERRL, EOMI. Absent: scleral icterus, conjunctival injection ENT exam: Present: normal exam, mucous membranes moist Neck exam: Present: normal inspection, full ROM. Absent: tenderness Respiratory exam: Present: normal lung sounds bilaterally. Absent: respiratory distress, wheezes Cardiovascular Exam: Present: regular rate, normal rhythm, normal heart sounds Course Vital Signs 08/06/21 08:11 Temperature 98.2 F Pulse Rate 111 H Respiratory 18 Rate Blood Pressure 195/92 O2 Sat by Pulse 99 Oximetry Medical Decision Making - Medical Decision Making Vitals are stable. Patient slightly tachycardic which is likely secondary to his anxiety as he is very anxious on presentation. Patient is looking for something to help him sleep. At this time we can recommend melatonin [id number] as well as intermittently Benadryl he will need to follow up with his primary care doctor for further treatment of insomnia. Disposition Clinical Impression: Insomnia Disposition: HOME SELF-CARE Condition: Good Instructions (If sedation given, give patient instructions): Insomnia (ED) Additional Instructions: Please try [id number] melatonin. You can try Benadryl intermittently. Fo llow-up with your primary care doctor regarding insomnia. Return to the emergency room for any worsening symptoms. Is patient prescribed a controlled substance at d/c from ED?: No Referrals: Sharyn Reyes MD [Primary Care Provider] - 1-2 days Time of Disposition: 08:57
[2021-08-06 08:15] VITALS: BP 195/92; PULSE 111; RESP 18; TEMP 98.2
== END 2021-08-06 09:30 | disposition home or self-care (01) ==
LOC: EC 08:09
DX: G47.00 Insomnia, unspecified (principal); J45.909 Unspecified asthma, uncomplicated; E11.9 Type 2 diabetes mellitus without complications; I10 Essential (primary) hypertension; Z88.5 Allergy status to narcotic agent; Z79.899 Other long term (current) drug therapy; Z79.84 Long term (current) use of oral hypoglycemic drugs
CPT/HCPCS: 99283

== ENCOUNTER 2021-08-07 20:26 | Inpatient (IN) | payer MEDICARE ==
[2021-08-07] MEDS ORDERED: SODIUM CHLORIDE 0.9% 1,000 ML IV STA (23:52)
[2021-08-08 00:28] LABS: Basophils % (A) 0 %; Eosinophils # (A) 0.1 k/uL (0-0.7); Eosinophils % (A) 0 %; HCT 39.6 % (39.0-53.0); HGB 14.3 gm/dL (13.0-17.5); Hyperchromasia Slight; Lymphocytes # (A) 2.1 k/uL (1.0-4.8); Lymphocytes % (A) 12 %; MCH 32.1 pg (25.0-35.0); MCHC 36.2 g/dL (31.0-37.0); MCV 88.6 fL (80.0-100.0); Mean Platelet Volume 8.8; Monocytes # (A) 1.3 k/uL (0-1.0); Monocytes % (A) 7 %; Neutrophils # (A) 14.3 k/uL (1.3-7.7); Neutrophils % (A) 80 %; Platelet Count 226 k/uL (150-450); RBC 4.47 m/uL (4.30-5.90); RDW 12.6 % (11.5-15.5)
[2021-08-08 00:29] LABS: Appearance,Urine Clear (Clear); Bilirubin,Urine Negative (Negative); Blood,Urine Trace (Negative); Color,Urine Light Yellow; Glucose,Urine (UA) Negative (Negative); Ketones,Urine 2+ (Negative); Leukocyte Esterase,Urine Negative (Negative); Mucus,Urine Rare /hpf; Nitrite,Urine Negative (Negative); PH, Urine 5.5 (5.0-8.0); Protein,Urine Negative (Negative); RBC,Urine <1 /hpf (0-5); Specific Gravity,Urine 1.009 (1.001-1.035); Urobilinogen,Urine <2.0 mg/dL (<2.0); WBC,Urine 1 /hpf (0-5)
[2021-08-08 00:38] LABS: Albumin 5.2 g/dL (3.5-5.0); Calcium 9.5 mg/dL (8.4-10.2); Potassium 4.4 mmol/L (3.5-5.1); Total Bilirubin 1.5 mg/dL (0.2-1.3); Total Protein 7.9 g/dL (6.3-8.2)
--- NOTE | 2021-08-08 01:16 | CT ---
EXAMINATION TYPE: CT abdomen pelvis w con DATE OF EXAM: 08/08/2021 COMPARISON: 07/08/2018 HISTORY: Abdominal pain CT DLP: 1207.8 mGycm Automated exposure control for dose reduction was used. CONTRAST: Performed with IV Contrast, patient injected with 100 mL of Isovue 300. Images obtained from the diaphragm to the floor the pelvis with IV contrast. Lung bases are clear. There is no pleural effusion. Heart size is normal. There is no pericardial eff usion. Liver spleen stomach pancreas appear intact. The bile ducts are not dilated. There are clips f rom cholecystectomy. There is no adrenal mass. Kidneys show satisfactory contrast opacification. Ther e is no hydronephrosis. Delayed images show normal renal excretion. Ureters are not dilated. There is no retroperitoneal adenopathy. The bladder distends smoothly. There is no inguinal hernia. There is no evidence of a pelvic mass. There is calcified vas deferens. There is no evidence of free fluid in the pelvis. There is no mesenteric edema. There is no ascites or free air. There are some fluid distended small b owel loops up to 3 cm in the upper abdomen. No transition point seen. Appendix is not seen. No sign o f thickened appendix. The lumbar vertebrae have normal alignment. Posterior elements are intact. There is no compression fr acture. Bony pelvis is intact. The hip joints are intact. IMPRESSION: Mild fluid distention of upper abdominal small bowel loops could relate to some ileus. This appears n ew compared to old exam. Left and right renal pelvis appear increased compared to old exam but no sig n of obstruction.
[2021-08-08] MEDS ORDERED: NALOXONE 0.4 MG/ML 1 ML VIAL IV PRN (02:11)
[2021-08-08] MEDS ORDERED: PIPERACILLIN-TAZOBACTAM 3.375 GM in SODIUM CHLORIDE 0.9% 100 ML IVPB STA (02:11)
[2021-08-08] MEDS ORDERED: ONDANSETRON 4 MG/2 ML VIAL IVP PRN (02:11)
[2021-08-08] MEDS ORDERED: ACETAMINOPHEN TAB 325 MG TAB PO PRN (02:11)
--- NOTE | 2021-08-08 02:14 | ED ---
General Adult HPI - General Chief complaint: Upper Respiratory Infection Stated complaint: Fever,Vomiting,Body aches Time Seen by Provider: 08/07/21 23:23 Source: patient Mode of arrival: ambulatory Limitations: no limitations - History of Present Illness Initial comments: 60 year-old male patient presents to the emergency department requesting COVID test. States for the last several days he has been experiencing fever, vomiting, and diarrhea. Denies any significant cough or congestion. States he was having lower abdominal pain over the last few days. He reports intermittent dizziness and lower extremity weakness bilateral. He did have previous appendectomy. No other abdominal surgeries. Denies any recent travel or sick contacts. Denies hematochezia, melena, or hematemesis. Denies chest pain or shortness of breath. - Related Data Home Medications Medication Instructions Recorded Confirmed ALPRAZolam [Xanax] 0.25 mg PO BID PRN 10/08/16 07/08/18 HYDROcodone/APAP 10-325MG [[place] 1 tab PO Q6H PRN 10/08/16 07/08/18 10-325] glyBURIDE,MICRONIZED [Glyburide 6 mg PO BID 10/08/16 07/08/18 Micronized] hydroCHLOROthiazide [Hydrodiuril] 50 mg PO DAILY 10/08/16 07/08/18 carvediloL [Coreg*] 12.5 mg PO BID-W/MEALS 06/22/18 07/08/18 cloNIDine HCL [Catapres] 0.2 mg PO BID 07/08/18 07/08/18 Previous Rx's Medication Instructions Recorded amLODIPine BESYLATE [Norvasc] 10 mg PO DAILY #30 tablet 10/10/16 lisinopriL [Zestril] 20 mg PO BID #60 tab 10/10/16 Ondansetron [Zofran ODT] 4 mg PO Q8HR PRN #15 tab 08/06/21 Allergies Allergy/AdvReac Type Severity Reaction Status Date / Time codeine Allergy Nausea Verified 08/07/21 22:14 Review of Systems ROS Statement: Those systems with pertinent positive or pertinent negative responses have been documented in the HPI. ROS Other: All systems not noted in ROS Statement are negative. Past Medical History Past Medical History: Asthma, Diabetes Mellitus, Hypertension, Osteoarthritis (OA), Rheumatoid Arthritis (RA) Additional Past Medical History / Comment(s): . History of Any Multi-Drug Resistant Organisms: None Reported Past Surgical History: Appendectomy, Cholecystectomy, Orthopedic Surgery Additional Past Surgical History / Comment(s): L knee ACL/reconstruction. Past Anesthesia/Blood Transfusion Reactions: Postoperative Nausea & Vomiting (PONV) Past Psychological History: Anxiety Smoking Status: Never smoker Past Alcohol Use History: None Reported Past Drug Use History: Marijuana - Past Family History Father Family Medical History: Diabetes Mellitus Mother Family Medical History: No Reported History Additional Family Medical History / Comment(s): . General Exam Limitations: no limitations General appearance: alert, in no apparent distress, other (This is a well- developed, well-nourished adult male in no acute distress.) ENT exam: Present: normal exam, normal oropharynx, mucous membranes moist Respiratory exam: Present: normal lung sounds bilaterally. Absent: respiratory distress, wheezes, rales, rhonchi, stridor Cardiovascular Exam: Present: normal rhythm, tachycardia, normal heart sounds. Absent: systolic murmur, diastolic murmur, rubs, gallop, clicks GI/Abdominal exam: Present: soft, tenderness (Right lower quadrant, suprapubic), normal bowel sounds. Absent: distended, guarding, rebound, rigid Neurological exam: Present: alert, oriented X3, CN II-XII intact Psychiatric exam: Present: normal affect, normal mood Skin exam: Present: warm, dry, intact, normal color. Absent: rash Course Vital Signs 08/07/21 08/08/21 08/08/21 22:10 00:36 02:34 Temperature 99.9 F H 98.3 F Pulse Rate 120 H 91 Respiratory 20 18 18 Rate Blood Pressure 165/78 167/81 O2 Sat by Pulse 98 98 Oximetry Medical Decision Making - Medical Decision Making 60-year-old male patient presents for evaluation of vomiting, diarrhea, abdominal pain. He was concerned he may have COVID-19 but tested negative. Physical examination revealed right lower quadrant and pubic tenderness. He did have a slightly elevated temperature. Labs reviewed and did reveal white blood cell count at 18.0 abdominal sodium 121, chloride 84, CO2 21, glucose 134, total bilirubin 1.5, AST 125. Urinalysis showed no evidence for infection. He tested negative for influenza and RSV as well. Chest x-ray was negative. Given evidence for SIRS he will be given dose of antibiotics. Blood cultures obtained. Hyponatremia could be due to dehydration we will give IV fluids. He will be admitted to the hospital for further evaluation and monitoring. He is agreeable with this plan. My attending is Dr. Mckenna. - Lab Data Result diagrams: 08/07/21 23:50 08/07/21 23:50 Lab Results 08/07/21 08/07/21 08/07/21 Range/Units 22:17 23:50 23:50 WBC 18.0 H (3.8-10.6) k/uL RBC 4.47 (4.30-5.90) m/uL Hgb 14.3 (13.0-17.5) gm/dL Hct 39.6 (39.0-53.0) % MCV 88.6 (80.0-100.0) fL MCH 32.1 (25.0-35.0) pg MCHC 36.2 (31.0-37.0) g/dL RDW 12.6 (11.5-15.5) % Plt Count 226 (150-450) k/uL MPV 8.8 Neutrophils % 80 % Lymphocytes % 12 % Monocytes % 7 % Eosinophils % 0 % Basophils % 0 % Neutrophils # 14.3 H (1.3-7.7) k/uL Lymphocytes # 2.1 (1.0-4.8) k/uL Monocytes # 1.3 H (0-1.0) k/uL Eosinophils # 0.1 (0-0.7) k/uL Basophils # 0.0 (0-0.2) k/uL Hyperchromasia Slight Sodium 121 L (137-145) mmol/L Potassium 4.4 (3.5-5.1) mmol/L Chloride 84 L (98-107) mmol/L Carbon Dioxide 21 L (22-30) mmol/L Anion Gap 16 mmol/L BUN 18 (9-20) mg/dL Creatinine 1.25 (0.66-1.25) mg/dL Est GFR (CKD-EPI)AfAm 72 (>60 ml/min/1.73 sqM) Est GFR (CKD-EPI)NonAf 62 (>60 ml/min/1.73 sqM) Glucose 134 H (74-99) mg/dL Plasma Lactic Acid Michael (0.7-2.0) mmol/L Calcium 9.5 (8.4-10.2) mg/dL Total Bilirubin 1.5 H (0.2-1.3) mg/dL AST 125 H (17-59) U/L ALT 48 (4-49) U/L Alkaline Phosphatase 75 (38-126) U/L Total Protein 7.9 (6.3-8.2) g/dL Albumin 5.2 H (3.5-5.0) g/dL Lipase 246 (23-300) U/L Urine Color Urine Appearance (Clear) Urine pH (5.0-8.0) Ur Specific [place] (1.001-1.035) Urine Protein (Negative) Urine Glucose (UA) (Negative) Urine Ketones (Negative) Urine Blood (Negative) Urine Nitrite (Negative) Urine Bilirubin (Negative) Urine Urobilinogen (<2.0) mg/dL Ur Leukocyte Esterase (Negative) Urine RBC (0-5) /hpf Urine WBC (0-5) /hpf Urine Mucus (None) /hpf Influenza Type A (PCR) Not Detected (Not Detectd) Influenza Type B (PCR) Not Detected (Not Detectd) RSV (PCR) Not Detected (Not Detectd) SARS-CoV-2 (PCR) Not Detected (Not Detectd) 08/07/21 08/07/21 Range/Units 23:50 23:56 WBC (3.8-10.6) k/uL RBC (4.30-5.90) m/uL Hgb (13.0-17.5) gm/dL Hct (39.0-53.0) % MCV (80.0-100.0) fL MCH (25.0-35.0) pg MCHC (31.0-37.0) g/dL RDW (11.5-15.5) % Plt Count (150-450) k/uL MPV Neutrophils % % Lymphocytes % % Monocytes % % Eosinophils % % Basophils % % Neutrophils # (1.3-7.7) k/uL Lymphocytes # (1.0-4.8) k/uL Monocytes # (0-1.0) k/uL Eosinophils # (0-0.7) k/uL Basophils # (0-0.2) k/uL Hyperchromasia Sodium (137-145) mmol/L Potassium (3.5-5.1) mmol/L Chloride (98-107) mmol/L Carbon Dioxide (22-30) mmol/L Anion Gap mmol/L BUN (9-20) mg/dL Creatinine (0.66-1.25) mg/dL Est GFR (CKD-EPI)AfAm (>60 ml/min/1.73 sqM) Est GFR (CKD-EPI)NonAf (>60 ml/min/1.73 sqM) Glucose (74-99) mg/dL Plasma Lactic Acid Michael 1.8 (0.7-2.0) mmol/L Calcium (8.4-10.2) mg/dL Total Bilirubin (0.2-1.3) mg/dL AST (17-59) U/L ALT (4-49) U/L Alkaline Phosphatase (38-126) U/L Total Protein (6.3-8.2) g/dL Albumin (3.5-5.0) g/dL Lipase (23-300) U/L Urine Color Light Yellow Urine Appearance Clear (Clear) Urine pH 5.5 (5.0-8.0) Ur Specific [place] 1.009 (1.001-1.035) Urine Protein Negative (Negative) Urine Glucose (UA) Negative (Negative) Urine Ketones 2+ H (Negative) Urine Blood Trace H (Negative) Urine Nitrite Negative (Negative) Urine Bilirubin Negative (Negative) Urine Urobilinogen <2.0 (<2.0) mg/dL Ur Leukocyte Esterase Negative (Negative) Urine RBC <1 (0-5) /hpf Urine WBC 1 (0-5) /hpf Urine Mucus Rare H (None) /hpf Influenza Type A (PCR) (Not Detectd) Influenza Type B (PCR) (Not Detectd) RSV (PCR) (Not Detectd) SARS-CoV-2 (PCR) (Not Detectd) - Radiology Data Radiology results: report reviewed, image reviewed CT abdomen and pelvis with contrast was obtained. Report was reviewed in its entirety. Impression by Dr. Carroll shows mild fluid distention of upper abdominal small bowel loops could relate to some ileus. This appears new compared to old exam. Left and right renal pelvis appear increased compared to old exam but no sign of obstruction. Two-view x-ray of the chest is obtained. Report was reviewed in its entirety. Impression by Dr. Carbone shows normal chest. No change. Disposition Clinical Impression: Ileus, Hyponatremia, SIRS (systemic inflammatory response syndrome) Disposition: ADMITTED IP TO THIS [facility] Condition: Serious Decision to Admit Reason: Admit from EC Decision Date: 08/08/21 Decision Time: 02:14
--- NOTE | 2021-08-08 02:28 | XR ---
EXAMINATION TYPE: XR chest 2V DATE OF EXAM: 08/08/2021 COMPARISON: 12/03/2017 HISTORY: Leukocytosis TECHNIQUE: 2 views FINDINGS: Heart and mediastinum are normal. Lungs are clear. Diaphragm is normal. Bony thorax is inta ct. IMPRESSION: Normal chest. No change.
[2021-08-08] MEDS: SODIUM CHLORIDE 0.9% 1,000 ML IV SCH ×3 (02:39→20:32)
[2021-08-08] MEDS ORDERED: HYDROcodone/APAP 10-325MG 1 EACH TAB PO ONE (04:37)
[2021-08-08 05:50] LABS: Basophils % (A) 0 %; Eosinophils % (A) 0 %; HCT 39.1 % (39.0-53.0); Lymphocytes # (A) 1.6 k/uL (1.0-4.8); Lymphocytes % (A) 11 %; MCH 32.4 pg (25.0-35.0); MCHC 35.8 g/dL (31.0-37.0); MCV 90.5 fL (80.0-100.0); Mean Platelet Volume 9.3; Monocytes # (A) 1.1 k/uL (0-1.0); Monocytes % (A) 7 %; Neutrophils # (A) 12.2 k/uL (1.3-7.7); Neutrophils % (A) 81 %; Platelet Count 198 k/uL (150-450); RBC 4.32 m/uL (4.30-5.90); RDW 12.7 % (11.5-15.5)
[2021-08-08 06:05] LABS: Calcium 9.2 mg/dL (8.4-10.2); Potassium 4.5 mmol/L (3.5-5.1)
[2021-08-08] MEDS ORDERED: TEMAZEPAM 15 MG CAP PO PRN (10:57)
[2021-08-08 11:45] LABS: C Reactive Protein 0.6 mg/dL (<1.0)
[2021-08-08] MEDS: PIPERACILLIN-TAZOBACTAM 3.375 GM in SODIUM CHLORIDE 0.9% 100 ML IVPB SCH ×2 (11:45→20:33)
[2021-08-08] MEDS ORDERED: ONDANSETRON ODT 4 MG TAB PO PRN (12:55)
--- NOTE | 2021-08-08 13:34 | HP ---
HISTORY AND PHYSICAL DATE OF SERVICE: 08/08/2021. CHIEF COMPLAINT: Fever, vomiting, body aches. HISTORY OF PRESENT ILLNESS: This 60-year-old gentleman with a past medical history of asthma, diabetes, hypertension, DJD, history of pneumonia, history of rheumatoid arthritis, being followed by Dr. Reyes in the outpatient setting, was complaining of fever, vomiting and some diarrhea. Some cough and congestion are noted. The patient also had Covid 19, initially Covid 19 was found to be negative. Patient admitted to the hospital for further evaluation and treatment. LDH is 671. Sodium is 126, a CT scan of the abdomen was done which I reviewed personally. Other labs are noted. ASSESSMENT: 1. Abdominal pain, nausea and diarrhea, possible acute gastroenteritis, viral gastritis, rule out Covid 19 infection. Possible abdominal ileus. 2. Hyponatremia. 3. Increased WBC. 4. Increased glucose. 5. Increased LDH. 6. Asthma. 7. Diabetes mellitus, type 2. 8. Hypertension. 9. History of degenerative joint disease. 10.History of pneumonia. 11.History of rheumatoid arthritis. 12.Appendectomy. 13.Cholecystectomy. 14.History of degenerative joint disease. 15.History of anxiety. 16.FULL CODE. RECOMMENDATIONS DISCUSSION: This 60-year-old gentleman who presented with multiple complex medical issues, we will monitor the patient closely, continue the current medications, management and symptomatic treatment. Otherwise, the patient is started on empiric IV antibiotics. Otherwise resume the home medications and we will closely monitor. Otherwise, closely follow with surgery. We will repeat Covid 19. See orders for details. Further recommendations to follow. MMODL / IJN: [id number] /
--- NOTE | 2021-08-08 14:25 | P.GSCN ---
History of Present Illness Consult date: 08/08/21 History of present illness: CHIEF COMPLAINT: Fever, vomiting and diarrhea HISTORY OF PRESENT ILLNESS: Patient presented to the emergency room requesting cold test. He has been expressing fever, vomiting and diarrhea 5 days. He complains of lower abdominal pain mostly on the right side of the abdomen. His last bowel movement was 2 days ago. He is having flatus. Covid test was negative. He had a computed tomography scan of abdomen and pelvis that showed evidence of likely an ileus. Patient's sodium level was low at 121 he reports having poor appetite. Past surgical history does include appendectomy and cholecystectomy. Patient seen and examined with Dr. Potts PAST MEDICAL HISTORY: Asthma, Diabetes Mellitus, Hypertension, Osteoarthritis (OA), Rheumatoid Arthritis (RA) PAST SURGICAL HISTORY: Appendectomy and cholecystectomy MEDICATIONS: See list. ALLERGIES: See list. SOCIAL HISTORY: No illicit drug use. REVIEW OF SYSTEMS: CONSTITUTIONAL: Denies fever or chills. HEENT: Denies blurred vision, vision changes, or eye pain. Denies hemoptysis CARDIOVASCULAR: Denies chest pain or pressure. RESPIRATORY: No shortness of breath. GASTROINTESTINAL: See HPI for pertinent findings HEMATOLOGIC: Denies bleeding disorders. GENITOURINARY: Denies any blood in urine or increased urinary frequency. SKIN: Denies pruitis. Denies rash. PHYSICAL EXAM: VITAL SIGNS: Reviewed GENERAL: Well-developed in no acute distress. HEENT: No sclera icterus. Extraocular movements grossly intact. Moist buccal mucosa. Head is atraumatic, normocephalic. No nasal drainage. ABDOMEN: Soft. Nondistended. Tenderness to palpation of right lower abdomen NEUROLOGIC: Alert and oriented. Cranial nerves II through XII grossly intact. LABORATORY DATA: WBC 18 down to 15 hemoglobin 14 platelets 198 Sed rate 9 D-dimer 0.46 Sodium 121 up to 126 potassium 4.5 and creatinine 1.16 Lactic 1.8 Total bili 1.5 AST 125 ALT 48 Lipase 246 Influenza RSV and Covid 19 not detected IMAGING: Computed tomography scan abdomen and pelvis mild fluid distention of upper abd ominal small bowel loops could relate some ileus. This appears new compared to old exam. Left and right renal pelvis appear increased compared to old exam but no sign of obstruction ASSESSMENT: 1. Abdominal pain with nausea and vomiting likely secondary to ileus 2. Hyponatremia likely contributing to patient's ileus PLAN: -Medicine service to correct sodium level -Start clear liquid diet -Continue IV fluids -Encourage patient to ambulate -Continue to observe Thank you for this consultation Physician Area Field Person note has been reviewed by physician. Signing provider agrees with the documented findings, assessment, and plan of care. Past Medical History Past Medical History: Asthma, Diabetes Mellitus, Hypertension, Osteoarthritis (OA), Pneumonia, Rheumatoid Arthritis (RA), Skin Disorder Additional Past Medical History / Comment(s): Lately insomnia, NIDDM type II/occasional neuropathy bilateral feet, bilateral carpal tunnel syndrome. History of Any Multi-Drug Resistant Organisms: None Reported Past Surgical History: Appendectomy, Cholecystectomy, Orthopedic Surgery Additional Past Surgical History / Comment(s): L knee ACL/reconstruction. Past Anesthesia/Blood Transfusion Reactions: Postoperative Nausea & Vomiting (PONV) Smoking Status: Former smoker - Past Family History Father Family Medical History: Diabetes Mellitus Additional Family Medical History / Comment(s): Father is . Mother Family Medical History: Renal Disease Additional Family Medical History / Comment(s): Mother is . Medications and Allergies Home Medications Medication Instructions Recorded Confirmed Type HYDROcodone/APAP 10-325MG [Opal 1 tab PO TID PRN 10/08/16 08/08/21 History 10-325] hydroCHLOROthiazide [Hydrodiuril] 50 mg PO DAILY 10/08/16 08/08/21 History amLODIPine BESYLATE [Norvasc] 10 mg PO DAILY #30 tablet 10/10/16 08/08/21 Rx Atorvastatin [Lipitor] 10 mg PO HS 08/08/21 08/08/21 History Meloxicam [Mobic] 15 mg PO DAILY 08/08/21 08/08/21 History Ondansetron Odt [Zofran ODT] 4 mg PO Q8H PRN 08/08/21 08/08/21 History glipiZIDE [Glucotrol] 5 mg PO DAILY 08/08/21 08/08/21 History lisinopriL [Zestril] 5 mg PO DAILY 08/08/21 08/08/21 History metFORMIN HCL [Glucophage] 1,000 mg PO BID 08/08/21 08/08/21 History metHOTREXate sodium [Methotrexate] 12.5 mg PO TU 08/08/21 08/08/21 History traZODone HCL 50 - 100 mg PO HS 08/08/21 08/08/21 History Allergies Allergy/AdvReac Type Severity Reaction Status Date / Time codeine AdvReac Nausea Verified 08/08/21 06:39 Surgical - Exam Vital Signs Temp Pulse Resp BP Pulse Ox 99.9 F H 120 H 20 165/78 98 08/07/21 22:10 08/07/21 22:10 08/07/21 22:10 08/07/21 22:10 08/07/21 22:10 Results - Labs 08/08/21 05:34 08/08/21 05:34 Abnormal Lab Results - Last 24 Hours (Table) 08/07/21 08/07/21 08/07/21 Range/Units 23:50 23:50 23:56 WBC 18.0 H (3.8-10.6) k/uL Neutrophils # 14.3 H (1.3-7.7) k/uL Monocytes # 1.3 H (0-1.0) k/uL Sodium 121 L (137-145) mmol/L Chloride 84 L (98-107) mmol/L Carbon Dioxide 21 L (22-30) mmol/L Glucose 134 H (74-99) mg/dL Total Bilirubin 1.5 H (0.2-1.3) mg/dL AST 125 H (17-59) U/L Lactate Dehydrogenase (313-618) U/L Albumin 5.2 H (3.5-5.0) g/dL Urine Ketones 2+ H (Negative) Urine Blood Trace H (Negative) Urine Mucus Rare H (None) /hpf 08/08/21 08/08/21 08/08/21 Range/Units 05:34 05:34 10:49 WBC 15.0 H (3.8-10.6) k/uL Neutrophils # 12.2 H (1.3-7.7) k/uL Monocytes # 1.1 H (0-1.0) k/uL Sodium 126 L (137-145) mmol/L Chloride 90 L (98-107) mmol/L Carbon Dioxide (22-30) mmol/L Glucose 133 H (74-99) mg/dL Total Bilirubin (0.2-1.3) mg/dL AST (17-59) U/L Lactate Dehydrogenase 671 H (313-618) U/L Albumin (3.5-5.0) g/dL Urine Ketones (Negative) Urine Blood (Negative) Urine Mucus (None) /hpf Diabetes panel 08/07/21 08/08/21 Range/Units 23:50 05:34 Sodium 121 L 126 L (137-145) mmol/L Potassium 4.4 4.5 (3.5-5.1) mmol/L Chloride 84 L 90 L (98-107) mmol/L Carbon Dioxide 21 L 23 (22-30) mmol/L BUN 18 17 (9-20) mg/dL Creatinine 1.25 1.16 (0.66-1.25) mg/dL Glucose 134 H 133 H (74-99) mg/dL Calcium 9.5 9.2 (8.4-10.2) mg/dL AST 125 H (17-59) U/L ALT 48 (4-49) U/L Alkaline Phosphatase 75 (38-126) U/L Total Protein 7.9 (6.3-8.2) g/dL Albumin 5.2 H (3.5-5.0) g/dL Calcium panel 08/07/21 08/08/21 Range/Units 23:50 05:34 Calcium 9.5 9.2 (8.4-10.2) mg/dL Albumin 5.2 H (3.5-5.0) g/dL Pituitary panel 08/07/21 08/08/21 Range/Units 23:50 05:34 Sodium 121 L 126 L (137-145) mmol/L Potassium 4.4 4.5 (3.5-5.1) mmol/L Chloride 84 L 90 L (98-107) mmol/L Carbon Dioxide 21 L 23 (22-30) mmol/L BUN 18 17 (9-20) mg/dL Creatinine 1.25 1.16 (0.66-1.25) mg/dL Glucose 134 H 133 H (74-99) mg/dL Calcium 9.5 9.2 (8.4-10.2) mg/dL Adrenal panel 08/07/21 08/08/21 Range/Units 23:50 05:34 Sodium 121 L 126 L (137-145) mmol/L Potassium 4.4 4.5 (3.5-5.1) mmol/L Chloride 84 L 90 L (98-107) mmol/L Carbon Dioxide 21 L 23 (22-30) mmol/L BUN 18 17 (9-20) mg/dL Creatinine 1.25 1.16 (0.66-1.25) mg/dL Glucose 134 H 133 H (74-99) mg/dL Calcium 9.5 9.2 (8.4-10.2) mg/dL Total Bilirubin 1.5 H (0.2-1.3) mg/dL AST 125 H (17-59) U/L ALT 48 (4-49) U/L Alkaline Phosphatase 75 (38-126) U/L Total Protein 7.9 (6.3-8.2) g/dL Albumin 5.2 H (3.5-5.0) g/dL
[2021-08-08] MEDS: HEPARIN SODIUM,PORCINE/PF 5,000 UNIT/0.5 ML SYRINGE SQ SCH ×2 (14:57→20:33)
[2021-08-08] MEDS: PANTOPRAZOLE 40 MG/10 ML VIAL IVP SCH ×2 (14:57→20:33)
[2021-08-08] MEDS: HYDROcodone/APAP 10-325MG 1 EACH TAB PO PRN (17:45)
[2021-08-08] MEDS: metFORMIN 500 MG TAB PO SCH (20:33)
[2021-08-08] MEDS ORDERED: ATORVASTATIN 10 MG TAB PO SCH (21:00)
[2021-08-08] MEDS ORDERED: traZODone HCL 50 MG TAB PO SCH (21:00)
[2021-08-09] MEDS: HYDROcodone/APAP 10-325MG 1 EACH TAB PO PRN ×2 (03:22→12:48)
[2021-08-09] MEDS: PIPERACILLIN-TAZOBACTAM 3.375 GM in SODIUM CHLORIDE 0.9% 100 ML IVPB SCH ×2 (03:22→10:04)
[2021-08-09 05:58] LABS: Basophils % (A) 0 %; Eosinophils % (A) 0 %; HCT 39.3 % (39.0-53.0); HGB 13.5 gm/dL (13.0-17.5); Lymphocytes # (A) 2.1 k/uL (1.0-4.8); Lymphocytes % (A) 19 %; MCH 31.9 pg (25.0-35.0); MCHC 34.5 g/dL (31.0-37.0); MCV 92.6 fL (80.0-100.0); Mean Platelet Volume 8.7; Monocytes # (A) 0.8 k/uL (0-1.0); Monocytes % (A) 7 %; Neutrophils # (A) 7.8 k/uL (1.3-7.7); Neutrophils % (A) 72 %; Platelet Count 192 k/uL (150-450); RBC 4.24 m/uL (4.30-5.90); RDW 12.9 % (11.5-15.5); WBC 10.9 k/uL (3.8-10.6)
[2021-08-09] MEDS ORDERED: MELOXICAM 7.5 MG TAB PO SCH (09:00)
[2021-08-09] MEDS ORDERED: lisinopriL 5 MG TAB PO SCH (09:00)
[2021-08-09] MEDS ORDERED: amLODIPine 10 MG TAB PO SCH (09:00)
[2021-08-09 09:48] LABS: African American GFR (CKD) 93.7 (60.0-200.0); Albumin 4.6 g/dL (3.8-4.9); Albumin/Globulin Ratio 2.09 (1.60-3.17); Anion Gap 15.6 mmol/L (10.00-18.00); BUN/Creat Ratio 15.1 Ratio (12.00-20.00); Blood Urea Nitrogen 15.1 mg/dL (9.0-27.0); Calcium 9.2 mg/dL (8.7-10.3); Carbon Dioxide 21.4 mmol/L (20.0-27.5); Globulin 2.2 g/dL (1.6-3.3); Non-African American GFR(CKD) 80.9 (60.0-200.0); Total Bilirubin 0.6 mg/dL (0.30-1.20); Total Protein 6.8 g/dL (6.2-8.2)
[2021-08-09] MEDS: metFORMIN 500 MG TAB PO SCH (10:03)
[2021-08-09] MEDS: PANTOPRAZOLE 40 MG/10 ML VIAL IVP SCH (10:03)
[2021-08-09] MEDS: HEPARIN SODIUM,PORCINE/PF 5,000 UNIT/0.5 ML SYRINGE SQ SCH (10:03)
--- NOTE | 2021-08-09 11:30 | P.PN ---
Subjective Progress Note Date: 08/09/21 CHIEF COMPLAINT: Abdominal pain with vomiting and fever HISTORY OF PRESENT ILLNESS: Surgical service is following regards to patient's ileus. Patient is passing a lot of gas. Reports decrease in abdominal pain. Requesting increase in diet. He reports that he is feeling hungry. Afebrile. Patient did have some tachycardia night now resolved. WBC 15 down to 10.9 hemoglobin 13.5 platelets 192 sodium improving from 126-132 AST 125 and ALT 64 PHYSICAL EXAM: VITAL SIGNS: Reviewed. GENERAL: Well-developed in no acute distress. HEENT: No sclera icterus. Extraocular movements grossly intact. Moist buccal mucosa. Head is atraumatic, normocephalic. ABDOMEN: Soft. Nondistended. Minimal tenderness with palpation in right lower abdomen NEUROLOGIC: Alert and oriented. Cranial nerves II through XII grossly intact. ASSESSMENT: 1. Abdominal pain with nausea and vomiting likely secondary to ileus 2. Hyponatremia likely contributing to patient's ileus 3. Possible gastroenteritis PLAN: -Advance diet to full liquids -Encourage patient to ambulate -Hyponatremia management per medicine service -Continue to follow Physician Director Security Risk Management note has been reviewed by physician. Signing provider agrees with the documented findings, assessment, and plan of care. Objective - Vital Signs Vital signs: Vital Signs Temp 98.3 F 08/09/21 04:45 Pulse 100 08/09/21 04:45 Resp 20 08/09/21 04:45 BP 154/81 08/09/21 04:45 Pulse Ox 99 08/09/21 04:45 Intake & Output 08/08/21 08/09/21 08/09/21 18:59 06:59 18:59 Intake Total 1200 Balance 1200 Weight 86.183 kg Intake: Intake, IV Titration 1000 Amount Piperacillin-Tazobactam 3 100 .375 gm In Sodium Chloride 0.9% 100 ml @ 25 mls/hr IVPB Q8H BRENDAN Rx#: [id number] Sodium Chloride 0.9% 1, 900 000 ml @ 75 mls/hr IV . [id number] BRENDAN Rx#:[id number] Oral 200 Other: Voiding Method Toilet Toilet # Voids 1 - Labs CBC & Chem 7: 08/09/21 05:16 08/09/21 05:16 Labs: Abnormal Lab Results - Last 24 Hours (Table) 01/12/2308/09/21 08/09/21 Range/Units 10:49 05:16 05:16 WBC 10.9 H (3.8-10.6) k/uL RBC 4.24 L (4.30-5.90) m/uL Neutrophils # 7.8 H (1.3-7.7) k/uL Sodium 132 L (135-145) mmol/L Chloride 95 L (96-109) mmol/L Glucose 117 H (70-110) mg/dL Ferritin 426.0 H (22.0-322.0) ng/mL AST 125 H (14-35) U/L ALT 64 H (10-49) U/L Lactate Dehydrogenase 671 H (313-618) U/L Microbiology - Last 24 Hours (Table) 08/07/21 23:50 Blood Culture - Preliminary Blood No Growth after 24 hours 08/08/21 00:10 Blood Culture - Preliminary Blood No Growth after 24 hours
[2021-08-09 11:50] VITALS: BP 137/80; PULSE 99; RESP 18; TEMP 98.2
[2021-08-09] MEDS ORDERED: INFLUENZA VACC (6 MOS-64 YRS) 60 MCG/0.5 ML SYRINGE IM ONE (13:31)
[2021-08-09 14:04] VITALS: BMI 30.7
--- NOTE | 2021-08-10 06:22 | DS ---
DISCHARGE SUMMARY DATE OF SERVICE: 08/09/2021 FINAL DIAGNOSES: 1. Abdominal pain, nausea, diarrhea, possible acute gastroenteritis with possible ileus, improved. 2. Hyponatremia. 3. Increased WBC. 4. Increased glucose. 5. Increased LDH. 6. Asthma history. 7. Diabetes mellitus, type 2. 8. Hypertension. 9. History of degenerative joint disease. 10.History of pneumonia. 11.History of rheumatoid arthritis. 12.Appendectomy. 13.History of cholecystectomy. 14.History of anxiety. 15.FULL CODE. DISCHARGE DISPOSITION: The patient is being discharged in stable condition with guarded prognosis. HISTORY OF PRESENT ILLNESS: This 60-year-old gentleman with a past medical history of multiple medical problems was admitted with abdominal pain. The patient possibly had acute viral infection. The Covid 19 testing was negative. The patient was treated symptomatically, improved significantly. Surgery saw the patient and cleared the patient for discharge. The patient will be discharged in stable condition with guarded prognosis with the following advice and medications: 1. Diet will be cardiac diet. 2. Activity limited until followup. 3. Follow up with Dr. Reyes in 2-3 days. 4. Follow up with surgery as recommended. DISCHARGE MEDICATIONS: 1. Metformin 1000 mg p.o. b.i.d. 2. Followup labs with Dr. Reyes. 3. Glucotrol 5 mg p.o. daily. 4. Hydrochlorothiazide 50 mg p.o. daily. 5. Lipitor 10 mg q.h.s. 6. Methotrexate 12.5 mg p.o. Friday. 7. Mobic as before. 8. Hydrocodone as before. 9. Trazodone 50 to 100 mg as before. 10.Zestril 5 mg p.o. daily. 11.Zofran as p.r.n. 12.Norvasc 10 mg p.o. daily. 13.Tylenol p.r.n. Patient discharged in stable condition with guarded prognosis. MMODL / IJN: [id number] /
[2021-08-14] MEDS ORDERED: metHOTREXate sodium 2.5 MG TAB PO SCH (09:00)
== END 2021-08-09 15:24 | disposition home or self-care (01) | DRG 389 ==
LOC: EC 20:26 → 5NMEDONC 08-08 01:43
PROVIDERS: ADMIT Hospitalist; ATTEND Hospitalist
DX: K56.7 Ileus, unspecified (principal); E87.1 Hypo-osmolality and hyponatremia; R65.10 Systemic inflammatory response syndrome (SIRS) of non-infectious origin without acute organ dysfunction; K52.9 Noninfective gastroenteritis and colitis, unspecified; Z20.822 Contact with and (suspected) exposure to COVID-19; E11.9 Type 2 diabetes mellitus without complications; Z88.5 Allergy status to narcotic agent; M19.90 Unspecified osteoarthritis, unspecified site; I10 Essential (primary) hypertension; J06.9 Acute upper respiratory infection, unspecified; J45.909 Unspecified asthma, uncomplicated; M06.9 Rheumatoid arthritis, unspecified; Z79.1 Long term (current) use of non-steroidal anti-inflammatories (NSAID); Z79.84 Long term (current) use of oral hypoglycemic drugs; Z79.899 Other long term (current) drug therapy; Z83.3 Family history of diabetes mellitus; Z87.01 Personal history of pneumonia (recurrent); Z87.891 Personal history of nicotine dependence; Z90.49 Acquired absence of other specified parts of digestive tract
CPT/HCPCS: 36415; 71046; 74177; 80048; 80053; 81001; 82728; 83605; 83615; 83690; 85025; 85379; 85652; 86140; 87040; 87636; 90686

== ENCOUNTER 2021-08-17 21:33 | Emergency (ER) | payer MEDICARE ==
[2021-08-17 21:54] VITALS: BP 170/78; PULSE 99; RESP 20; TEMP 98.1
[2021-08-17] MEDS ORDERED: SODIUM CHLORIDE 0.9% 500 ML 500 ML IV STA (23:21)
[2021-08-17 23:55] LABS: Basophils % (A) 0 %; Eosinophils # (A) 0.1 k/uL (0-0.7); Eosinophils % (A) 1 %; HCT 35.6 % (39.0-53.0); HGB 12.4 gm/dL (13.0-17.5); Lymphocytes # (A) 2.2 k/uL (1.0-4.8); Lymphocytes % (A) 23 %; MCH 32.1 pg (25.0-35.0); MCHC 34.9 g/dL (31.0-37.0); MCV 92.1 fL (80.0-100.0); Mean Platelet Volume 8.2; Monocytes # (A) 0.5 k/uL (0-1.0); Monocytes % (A) 5 %; Neutrophils # (A) 6.4 k/uL (1.3-7.7); Neutrophils % (A) 69 %; Platelet Count 215 k/uL (150-450); RBC 3.86 m/uL (4.30-5.90); RDW 12.7 % (11.5-15.5); WBC 9.2 k/uL (3.8-10.6)
--- NOTE | 2021-08-17 23:56 | XR ---
EXAMINATION TYPE: XR KUB DATE OF EXAM: 08/17/2021 COMPARISON: 01/20/2018 HISTORY: Abdominal pain TECHNIQUE: 3 views upright FINDINGS: There is no sign of intestinal obstruction or pneumoperitoneum. Fecal pattern is normal. Th ere is no evidence of a mass. There is vas deferens calcification consistent with diabetes. Lung base s are clear. There are clips from cholecystectomy. IMPRESSION: Nonacute abdomen. No adverse change.
[2021-08-17 23:59] LABS: Appearance,Urine Clear (Clear); Bilirubin,Urine Negative (Negative); Blood,Urine Negative (Negative); Color,Urine Light Yellow; Glucose,Urine (UA) Negative (Negative); Ketones,Urine Negative (Negative); Leukocyte Esterase,Urine Negative (Negative); Nitrite,Urine Negative (Negative); Protein,Urine Negative (Negative); Specific Gravity,Urine 1.008 (1.001-1.035); Urobilinogen,Urine <2.0 mg/dL (<2.0)
[2021-08-18 00:08] LABS: Albumin 4.2 g/dL (3.5-5.0); Potassium 4.5 mmol/L (3.5-5.1); Total Bilirubin 0.4 mg/dL (0.2-1.3)
[2021-08-18] MEDS ORDERED: SODIUM CHLORIDE 0.9% 50 ML IVPB ONE (02:15)
[2021-08-18] MEDS ORDERED: SOTROVIMAB (EUA) 500 MG in SODIUM CHLORIDE 0.9% 100 ML IVPB ONE (02:15)
--- NOTE | 2021-08-18 03:28 | ED ---
Recheck HPI - General Chief Complaint: Recheck/Abnormal Lab/Rx Stated Complaint: Constipation Time Seen by Provider: 08/17/21 23:07 Source: patient Mode of arrival: ambulatory Limitations: no limitations - History of Present Illness Initial Comments: 60 year-old male patient presents to the emergency department for constipation. States that he has not had a bowel movement over the last two days. States he is passing gas, denies abdominal pain. States his appetite is decreased and feels overall unwell and fatigued. He was recently admitted to the hospital for hyponatremia and ileus. States he was feeling better for a couple of days then started to feel worse again. States that he has been taking a stool softener. States he has been able to keep down food and fluid. He is any nausea or vomiting. Denies any cough or congestion. Denies any fever or chills. - Related Data Home Medications Medication Instructions Recorded Confirmed HYDROcodone/APAP 10-325MG [[place] 1 tab PO TID PRN 10/08/16 08/08/21 10-325] hydroCHLOROthiazide [Hydrodiuril] 50 mg PO DAILY 10/08/16 08/08/21 Atorvastatin [Lipitor] 10 mg PO HS 08/08/21 08/08/21 Meloxicam [Mobic] 15 mg PO DAILY 08/08/21 08/08/21 Ondansetron Odt [Zofran ODT] 4 mg PO Q8H PRN 08/08/21 08/08/21 glipiZIDE [Glucotrol] 5 mg PO DAILY 08/08/21 08/08/21 lisinopriL [Zestril] 5 mg PO DAILY 08/08/21 08/08/21 metFORMIN HCL [Glucophage] 1,000 mg PO BID 08/08/21 08/08/21 metHOTREXate sodium [Methotrexate] 12.5 mg PO TU 08/08/21 08/08/21 traZODone HCL 50 - 100 mg PO HS 08/08/21 08/08/21 Previous Rx's Medication Instructions Recorded amLODIPine BESYLATE [Norvasc] 10 mg PO DAILY #30 tablet 10/10/16 Acetaminophen Tab [Tylenol] 650 mg PO Q6HR PRN #30 tab 08/09/21 Allergies Allergy/AdvReac Type Severity Reaction Status Date / Time codeine AdvReac Nausea Verified 08/17/21 21:54 Review of Systems ROS Statement: Those systems with pertinent positive or pertinent negative responses have been documented in the HPI. ROS Other: All systems not noted in ROS Statement are negative. Past Medical History Past Medical History: Asthma, Diabetes Mellitus, Hypertension, Osteoarthritis (OA), Pneumonia, Rheumatoid Arthritis (RA), Skin Disorder Additional Past Medical History / Comment(s): Lately insomnia, NIDDM type II/occasional neuropathy bilateral feet, bilateral carpal tunnel syndrome. History of Any Multi-Drug Resistant Organisms: None Reported Past Surgical History: Appendectomy, Cholecystectomy, Orthopedic Surgery Additional Past Surgical History / Comment(s): L knee ACL/reconstruction. Past Anesthesia/Blood Transfusion Reactions: Postoperative Nausea & Vomiting (PONV) Past Psychological History: Anxiety Smoking Status: Former smoker Past Alcohol Use History: None Reported Past Drug Use History: None Reported - Past Family History Father Family Medical History: Diabetes Mellitus Additional Family Medical History / Comment(s): Father is . Mother Family Medical History: Renal Disease Additional Family Medical History / Comment(s): Mother is . General Exam Limitations: no limitations General appearance: alert, in no apparent distress, other (This is a well- developed, well-nourished adult male in no acute distress.) ENT exam: Present: normal exam, normal oropharynx, mucous membranes moist Respiratory exam: Present: normal lung sounds bilaterally. Absent: respiratory distress, wheezes, rales, rhonchi, stridor Cardiovascular Exam: Present: regular rate, normal rhythm, normal heart sounds. Absent: systolic murmur, diastolic murmur, rubs, gallop, clicks GI/Abdominal exam: Present: soft, normal bowel sounds. Absent: distended, tenderness, guarding, rebound, rigid Neurological exam: Present: alert, oriented X3, CN II-XII intact Psychiatric exam: Present: normal affect, normal mood Skin exam: Present: warm, dry, intact, normal color. Absent: rash Course Vital Signs 08/17/21 21:52 Temperature 98.1 F Pulse Rate 99 Respiratory 20 Rate Blood Pressure 170/78 O2 Sat by Pulse 99 Oximetry Medical Decision Making - Medical Decision Making 60-year-old male patient presented to the emergency department today for evaluation of possible constipation, general malaise, decreased appetite. Physical examination reveals soft nontender abdomen. He is afebrile normal vital signs. Labs reviewed and did reveal decreased sodium at 129. He did test positive for cold did. He did agree to receive monoclonal antibody infusion. He tolerated this well. Discharge follow up with his primary care physician for recheck in 1-2 days. Return parameters were discussed in detail. He verbalizes understanding and agrees with this plan. My attending is Dr. Mckenna. - Lab Data Result diagrams: 08/17/21 23:35 08/17/21 23:35 Lab Results 08/17/21 08/17/21 08/17/21 Range/Units 23:35 23:35 23:35 WBC 9.2 (3.8-10.6) k/uL RBC 3.86 L (4.30-5.90) m/uL Hgb 12.4 L (13.0-17.5) gm/dL Hct 35.6 L (39.0-53.0) % MCV 92.1 (80.0-100.0) fL MCH 32.1 (25.0-35.0) pg MCHC 34.9 (31.0-37.0) g/dL RDW 12.7 (11.5-15.5) % Plt Count 215 (150-450) k/uL MPV 8.2 Neutrophils % 69 % Lymphocytes % 23 % Monocytes % 5 % Eosinophils % 1 % Basophils % 0 % Neutrophils # 6.4 (1.3-7.7) k/uL Lymphocytes # 2.2 (1.0-4.8) k/uL Monocytes # 0.5 (0-1.0) k/uL Eosinophils # 0.1 (0-0.7) k/uL Basophils # 0.0 (0-0.2) k/uL Sodium 129 L (137-145) mmol/L Potassium 4.5 (3.5-5.1) mmol/L Chloride 96 L (98-107) mmol/L Carbon Dioxide 24 (22-30) mmol/L Anion Gap 9 mmol/L BUN 22 H (9-20) mg/dL Creatinine 1.07 (0.66-1.25) mg/dL Est GFR (CKD-EPI)AfAm 87 (>60 ml/min/1.73 sqM) Est GFR (CKD-EPI)NonAf 75 (>60 ml/min/1.73 sqM) Glucose 120 H (74-99) mg/dL Plasma Lactic Acid Michael (0.7-2.0) mmol/L Calcium 9.0 (8.4-10.2) mg/dL Total Bilirubin 0.4 (0.2-1.3) mg/dL AST 44 (17-59) U/L ALT 42 (4-49) U/L Alkaline Phosphatase 64 (38-126) U/L Total Protein 7.0 (6.3-8.2) g/dL Albumin 4.2 (3.5-5.0) g/dL Lipase 193 (23-300) U/L Urine Color Light Yellow Urine Appearance Clear (Clear) Urine pH 5.0 (5.0-8.0) Ur Specific Start 1.008 (1.001-1.035) Urine Protein Negative (Negative) Urine Glucose (UA) Negative (Negative) Urine Ketones Negative (Negative) Urine Blood Negative (Negative) Urine Nitrite Negative (Negative) Urine Bilirubin Negative (Negative) Urine Urobilinogen <2.0 (<2.0) mg/dL Ur Leukocyte Esterase Negative (Negative) Coronavirus (PCR) (Not Detectd) 08/17/21 08/17/21 Range/Units 23:35 23:35 WBC (3.8-10.6) k/uL RBC (4.30-5.90) m/uL Hgb (13.0-17.5) gm/dL Hct (39.0-53.0) % MCV (80.0-100.0) fL MCH (25.0-35.0) pg MCHC (31.0-37.0) g/dL RDW (11.5-15.5) % Plt Count (150-450) k/uL MPV Neutrophils % % Lymphocytes % % Monocytes % % Eosinophils % % Basophils % % Neutrophils # (1.3-7.7) k/uL Lymphocytes # (1.0-4.8) k/uL Monocytes # (0-1.0) k/uL Eosinophils # (0-0.7) k/uL Basophils # (0-0.2) k/uL Sodium (137-145) mmol/L Potassium (3.5-5.1) mmol/L Chloride (98-107) mmol/L Carbon Dioxide (22-30) mmol/L Anion Gap mmol/L BUN (9-20) mg/dL Creatinine (0.66-1.25) mg/dL Est GFR (CKD-EPI)AfAm (>60 ml/min/1.73 sqM) Est GFR (CKD-EPI)NonAf (>60 ml/min/1.73 sqM) Glucose (74-99) mg/dL Plasma Lactic Acid Michael 0.8 (0.7-2.0) mmol/L Calcium (8.4-10.2) mg/dL Total Bilirubin (0.2-1.3) mg/dL AST (17-59) U/L ALT (4-49) U/L Alkaline Phosphatase (38-126) U/L Total Protein (6.3-8.2) g/dL Albumin (3.5-5.0) g/dL Lipase (23-300) U/L Urine Color Urine Appearance (Clear) Urine pH (5.0-8.0) Ur Specific Start (1.001-1.035) Urine Protein (Negative) Urine Glucose (UA) (Negative) Urine Ketones (Negative) Urine Blood (Negative) Urine Nitrite (Negative) Urine Bilirubin (Negative) Urine Urobilinogen (<2.0) mg/dL Ur Leukocyte Esterase (Negative) Coronavirus (PCR) Detected A (Not Detectd) - Radiology Data Radiology results: report reviewed, image reviewed KUB x-rays obtained. Report was reviewed in its entirety. Impression by Dr. Carbone shows nonacute abdomen. No adverse change. Disposition Clinical Impression: COVID-19 Disposition: HOME SELF-CARE Condition: Good Instructions (If sedation given, give patient instructions): Coronavirus Diseas e 2019 (COVID-19) Additional Instructions: Tips to help you feel better: -Maintain adequate fluid intake - especially water. -Rest, you are healing your body will require extra sleep. -Eat even if you do not feel like it - broth, jello, toast are fine if you cannot eat full meals. -Take tylenol and motrin alternating (if you have no allergies or have not been instructed to avoid these medications) to help with body aches and fevers. -Obtain over the counter vitamin C, zinc, and vitamin D3. -Take medications as prescribed. Follow-up with your primary care physician for recheck in 1-2 days. Return for any new, worsening, or concerning symptoms. Is patient prescribed a controlled substance at d/c from ED?: No Referrals: Sharyn Reyes MD [Primary Care Provider] - 1-2 days
== END 2021-08-18 04:11 | disposition home or self-care (01) ==
LOC: EC 21:33
DX: U07.1 COVID-19 (principal); K59.00 Constipation, unspecified; J45.909 Unspecified asthma, uncomplicated; I10 Essential (primary) hypertension; M19.90 Unspecified osteoarthritis, unspecified site; E11.40 Type 2 diabetes mellitus with diabetic neuropathy, unspecified; M06.9 Rheumatoid arthritis, unspecified; Z88.5 Allergy status to narcotic agent; Z87.891 Personal history of nicotine dependence; Z79.899 Other long term (current) drug therapy; Z79.84 Long term (current) use of oral hypoglycemic drugs
CPT/HCPCS: 36415; 80053; 83605; 83690; 85025; 81003; 87635; 74018; 99283; 96360; Q0247